=== PATIENT | female | born 2000 | race African-American/Black ===

== ENCOUNTER 2023-08-13 04:47 | Observation (INO) | payer MEDICARE, OTHER ==
--- NOTE | 2023-08-13 05:03 | ED ---
Seizure HPI - General Source: EMS Mode of arrival: EMS Limitations: altered mental status - History of Present Illness MD Complaint: seizure -: minutes(s) Description of Episode: loss of consciousness, tonic-clonic movement -: second(s) Witnessed: yes - by bystander Seizure History: known seizure disorder Place: other <Qamar Parikh - Last Filed: 08/13/23 07:10> <Rayray Frank - Last Filed: 08/13/23 08:19> - General Stated Complaint: Seizure Time Seen by Provider: 08/13/23 04:51 - History of Present Illness Initial Comments: Patient is a young woman brought by EMS to have evaluation for seizure. The patient reportedly had a seizure tonight while at a local motel. EMS was called to the [facility] for patient who had generalized tonic-clonic seizure. Patient reportedly has seizure history. She reportedly had been drinking with and then had seizure EMS was called and patient reportedly had a second. On arrival the patient is not able to provide any history does appear to be postictal. (Qamar Parikh) - Related Data Allergies Allergy/AdvReac Type Severity Reaction Status Date / Time No Known Allergies Allergy Verified 08/13/23 05:44 Review of Systems ROS Other: All systems not noted in ROS Statement are negative. Limitations: ROS unobtainable due to patients medical condition <Qamar Parikh - Last Filed: 08/13/23 07:10> ROS Other: All systems not noted in ROS Statement are negative. <Rayray Frank - Last Filed: 08/13/23 08:19> ROS Statement: Those systems with pertinent positive or pertinent negative responses have been documented in the HPI. General Exam Limitations: altered mental status General appearance: obtunded Head exam: Present: atraumatic, normocephalic Eye exam: Present: normal appearance, PERRL. Absent: scleral icterus, conjunctival injection ENT exam: Present: normal oropharynx Neck exam: Present: normal inspection, full ROM. Absent: tenderness Respiratory exam: Present: normal lung sounds bilaterally. Absent: respiratory distress, wheezes, rales, rhonchi, stridor Cardiovascular Exam: Present: regular rate, normal rhythm, normal heart sounds. Absent: systolic murmur, diastolic murmur, rubs, gallop GI/Abdominal exam: Present: soft. Absent: distended, tenderness, guarding, rebound, rigid, mass Extremities exam: Present: normal inspection, normal capillary refill. Absent: pedal edema, calf tenderness Back exam: Present: normal inspection. Absent: CVA tenderness (R), CVA tenderness (L) Neurological exam: Present: altered, reflexes normal Skin exam: Present: warm, dry, intact, normal color. Absent: rash <Qamar Parikh - Last Filed: 08/13/23 07:10> Course Vital Signs 08/13/23 08/13/23 05:25 06:17 Temperature 98.3 F Pulse Rate 110 H 101 H Respiratory 16 16 Rate Blood Pressure 139/86 159/110 O2 Sat by Pulse 99 98 Oximetry Medical Decision Making - Lab Data Result diagrams: 08/13/23 04:59 08/13/23 04:59 - EKG Data -: EKG Interpreted by Me EKG shows normal: sinus rhythm, axis (Normal), intervals (Normal), QRS complexes (Normal), ST-T waves (Normal) Rate: tachycardia (Rate 110 bpm) <Qamar Parikh - Last Filed: 08/13/23 07:10> - Lab Data Result diagrams: 08/13/23 04:59 08/13/23 04:59 <Rayray Frank - Last Filed: 08/13/23 08:19> - Medical Decision Making Discussion with the patient's reveal that they had started drinking around 1 PM on August 12. The patient had also taken something that she had bought at the liquor store, that was supposed to enhance female libido. They had eaten pizza and then gone to sleep and then the patient had awakened him with seizure. (Qamar Parikh) Was pt. sent in by a medical professional or institution (, PA, CONTINUITY PERSON, urgent care, hospital, or usp...) When possible be specific @ -No Did you speak to anyone other than the patient for history (EMS, parent, family, police, friend...)? What history was obtained from this source @ - helps provide history as patient is drowsy Did you review nursing and triage notes (agree or disagree)? Why? @ -I reviewed and agree with nursing and triage notes Were old charts reviewed (outside hosp., previous admission, EMS record, old EKG, old radiological studies, urgent care reports/EKG's, usp records)? Report findings @ -No old charts were reviewed Differential Diagnosis (chest pain, altered mental status, abdominal pain women, abdominal pain men, vaginal bleeding, weakness, fever, dyspnea, syncope, headache, dizziness, GI bleed, back pain, seizure, CVA, palpatations, mental health, musculoskeletal)? @ -Differential Seizure: Recurrent seizure disorder, febrile seizure, alcohol withdrawal, stimulants, meningitis, encephalitis, intercranial hemorrhage, intracranial tumor, stroke, eclampsia, thyrotoxicosis, hypocalcemia, hyponatremia, hypernatremia, hypomagnesemia, psychogenic, this is not meant to be an all-inclusive list. EKG interpreted by me (3pts min.). @ -As above X-rays interpreted by me (1pt min.). @ -Chest x-ray shows no acute process CT interpreted by me (1pt min.). @ -CT brain reveals no acute process. U/S interpreted by me (1pt. min.). @ -None done What testing was considered but not performed or refused? (CT, X-rays, U/S, labs)? Why? @ -None What meds were considered but not given or refused? Why? @ -None Did you discuss the management of the patient with other professionals (professionals i.e. , PA, CONTINUITY PERSON, lab, RT, psych nurse, social science instructor, senior net engineer, teacher, police officer booking, briefcase sewer)? Give summary @ -EMH, who will admit covering hospital call Was smoking cessation discussed for >3mins.? @ -No Was critical care preformed (if so, how long)? @ -No Were there social determinants of health that impacted care today? How? (Homelessness, low income, unemployed, alcoholism, drug addiction, transportation, low edu. Level, literacy, decrease access to med. care, prison, rehab)? @ -No Was there de-escalation of care discussed even if they declined (Discuss DNR or withdrawal of care, Hospice)? DNR status @ -No What co-morbidities impacted this encounter? (DM, HTN, Smoking, COPD, CAD, Cancer, CVA, ARF, Chemo, Hep., AIDS, mental health diagnosis, sleep apnea, morbid obesity)? @ -None Was patient admitted / discharged? Hospital course, mention meds given and route, prescriptions, significant lab abnormalities, going to OR and other pertinent info. @ -Patient presents with seizure and has had a couple partial seizures in the emergency department. Patient remains drowsy on reevaluation. Evaluation limited at this time. Patient complains of back pain. Lumbar CT with some disc herniations. Patient will be admitted secondary to recurrent seizures with neuro and Ortho evaluation. Undiagnosed new problem with uncertain prognosis? @ -No Drug Therapy requiring intensive monitoring for toxicity (Heparin, Nitro, Insulin, Cardizem)? @ -No Were any procedures done? @ -No Diagnosis/symptom? @ -Recurrent seizures, lumbar herniation Acute, or Chronic, or Acute on Chronic? @ -Acute, acute Uncomplicated (without systemic symptoms) or Complicated (systemic symptoms)? @ -Default Side effects of treatment? @ -No Exacerbation, Progression, or Severe Exacerbation? @ -No Poses a threat to life or bodily function? How? (Chest pain, USA, CT, pneumonia, PE, COPD, DKA, ARF, appy, cholecystitis, CVA, Diverticulitis, Homicidal, Suicidal, threat to staff... and all critical care pts) @ -No (Rayray Frank) - Lab Data Lab Results 08/13/23 08/13/23 08/13/23 Range/Units 04:59 04:59 04:59 WBC 6.9 (3.8-10.6) k/uL RBC 4.24 (3.80-5.40) m/uL Hgb 11.9 (11.4-16.0) gm/dL Hct 36.8 (34.0-46.0) % MCV 86.8 (80.0-100.0) fL MCH 28.2 (25.0-35.0) pg MCHC 32.5 (31.0-37.0) g/dL RDW 13.9 (11.5-15.5) % Plt Count 358 (150-450) k/uL MPV 7.0 Neutrophils % 71 % Lymphocytes % 23 % Monocytes % 2 % Eosinophils % 2 % Basophils % 1 % Neutrophils # 4.9 (1.3-7.7) k/uL Lymphocytes # 1.6 (1.0-4.8) k/uL Monocytes # 0.2 (0-1.0) k/uL Eosinophils # 0.1 (0-0.7) k/uL Basophils # 0.0 (0-0.2) k/uL PT 10.3 (10.0-12.5) sec INR 0.9 (<1.2) APTT 23.3 (22.0-30.0) sec Sodium (137-145) mmol/L Potassium (3.5-5.1) mmol/L Chloride (98-107) mmol/L Carbon Dioxide (22-30) mmol/L Anion Gap mmol/L BUN (7-17) mg/dL Creatinine (0.52-1.04) mg/dL Est GFR (CKD-EPI)AfAm (>60 ml/min/1.73 sqM) Est GFR (CKD-EPI)NonAf (>60 ml/min/1.73 sqM) Glucose (74-99) mg/dL Calcium (8.4-10.2) mg/dL Total Bilirubin (0.2-1.3) mg/dL AST (14-36) U/L ALT (4-34) U/L Alkaline Phosphatase (38-126) U/L Troponin I (0.000-0.034) ng/mL Total Protein (6.3-8.2) g/dL Albumin (3.5-5.0) g/dL Urine Color Urine Appearance (Clear) Urine pH (5.0-8.0) Ur Specific [place] (1.001-1.035) Urine Protein (Negative) Urine Glucose (UA) (Negative) Urine Ketones (Negative) Urine Blood (Negative) Urine Nitrite (Negative) Urine Bilirubin (Negative) Urine Urobilinogen (<2.0) mg/dL Ur Leukocyte Esterase (Negative) Urine HCG, Qual (Not Detectd) Urine Opiates Screen Not Detected (NotDetected) Ur Oxycodone Screen Not Detected (NotDetected) Urine Methadone Screen Not Detected (NotDetected) Ur Barbiturates Screen Not Detected (NotDetected) U Tricyclic Antidepress Not Detected (NotDetected) Ur Phencyclidine Scrn Not Detected (NotDetected) Ur Amphetamines Screen Not Detected (NotDetected) U Methamphetamines Scrn Not Detected (NotDetected) U Benzodiazepines Scrn Not Detected (NotDetected) Urine Cocaine Screen Not Detected (NotDetected) U Marijuana (THC) Screen Detected H (NotDetected) Serum Alcohol mg/dL 08/13/23 08/13/23 08/13/23 Range/Units 04:59 04:59 04:59 WBC (3.8-10.6) k/uL RBC (3.80-5.40) m/uL Hgb (11.4-16.0) gm/dL Hct (34.0-46.0) % MCV (80.0-100.0) fL MCH (25.0-35.0) pg MCHC (31.0-37.0) g/dL RDW (11.5-15.5) % Plt Count (150-450) k/uL MPV Neutrophils % % Lymphocytes % % Monocytes % % Eosinophils % % Basophils % % Neutrophils # (1.3-7.7) k/uL Lymphocytes # (1.0-4.8) k/uL Monocytes # (0-1.0) k/uL Eosinophils # (0-0.7) k/uL Basophils # (0-0.2) k/uL PT (10.0-12.5) sec INR (<1.2) APTT (22.0-30.0) sec Sodium 146 H (137-145) mmol/L Potassium 4.1 (3.5-5.1) mmol/L Chloride 111 H (98-107) mmol/L Carbon Dioxide 24 (22-30) mmol/L Anion Gap 11 mmol/L BUN 9 (7-17) mg/dL Creatinine 0.67 (0.52-1.04) mg/dL Est GFR (CKD-EPI)AfAm >90 (>60 ml/min/1.73 sqM) Est GFR (CKD-EPI)NonAf >90 (>60 ml/min/1.73 sqM) Glucose 108 H (74-99) mg/dL Calcium 9.6 (8.4-10.2) mg/dL Total Bilirubin 0.4 (0.2-1.3) mg/dL AST 23 (14-36) U/L ALT 14 (4-34) U/L Alkaline Phosphatase 89 (38-126) U/L Troponin I 0.026 (0.000-0.034) ng/mL Total Protein 8.7 H (6.3-8.2) g/dL Albumin 4.7 (3.5-5.0) g/dL Urine Color Light Yellow Urine Appearance Clear (Clear) Urine pH 7.5 (5.0-8.0) Ur Specific [place] 1.013 (1.001-1.035) Urine Protein Negative (Negative) Urine Glucose (UA) Negative (Negative) Urine Ketones Negative (Negative) Urine Blood Negative (Negative) Urine Nitrite Negative (Negative) Urine Bilirubin Negative (Negative) Urine Urobilinogen <2.0 (<2.0) mg/dL Ur Leukocyte Esterase Negative (Negative) Urine HCG, Qual (Not Detectd) Urine Opiates Screen (NotDetected) Ur Oxycodone Screen (NotDetected) Urine Methadone Screen (NotDetected) Ur Barbiturates Screen (NotDetected) U Tricyclic Antidepress (NotDetected) Ur Phencyclidine Scrn (NotDetected) Ur Amphetamines Screen (NotDetected) U Methamphetamines Scrn (NotDetected) U Benzodiazepines Scrn (NotDetected) Urine Cocaine Screen (NotDetected) U Marijuana (THC) Screen (NotDetected) Serum Alcohol 14 mg/dL 08/13/23 Range/Units 04:59 WBC (3.8-10.6) k/uL RBC (3.80-5.40) m/uL Hgb (11.4-16.0) gm/dL Hct (34.0-46.0) % MCV (80.0-100.0) fL MCH (25.0-35.0) pg MCHC (31.0-37.0) g/dL RDW (11.5-15.5) % Plt Count (150-450) k/uL MPV Neutrophils % % Lymphocytes % % Monocytes % % Eosinophils % % Basophils % % Neutrophils # (1.3-7.7) k/uL Lymphocytes # (1.0-4.8) k/uL Monocytes # (0-1.0) k/uL Eosinophils # (0-0.7) k/uL Basophils # (0-0.2) k/uL PT (10.0-12.5) sec INR (<1.2) APTT (22.0-30.0) sec Sodium (137-145) mmol/L Potassium (3.5-5.1) mmol/L Chloride (98-107) mmol/L Carbon Dioxide (22-30) mmol/L Anion Gap mmol/L BUN (7-17) mg/dL Creatinine (0.52-1.04) mg/dL Est GFR (CKD-EPI)AfAm (>60 ml/min/1.73 sqM) Est GFR (CKD-EPI)NonAf (>60 ml/min/1.73 sqM) Glucose (74-99) mg/dL Calcium (8.4-10.2) mg/dL Total Bilirubin (0.2-1.3) mg/dL AST (14-36) U/L ALT (4-34) U/L Alkaline Phosphatase (38-126) U/L Troponin I (0.000-0.034) ng/mL Total Protein (6.3-8.2) g/dL Albumin (3.5-5.0) g/dL Urine Color Urine Appearance (Clear) Urine pH (5.0-8.0) Ur Specific [place] (1.001-1.035) Urine Protein (Negative) Urine Glucose (UA) (Negative) Urine Ketones (Negative) Urine Blood (Negative) Urine Nitrite (Negative) Urine Bilirubin (Negative) Urine Urobilinogen (<2.0) mg/dL Ur Leukocyte Esterase (Negative) Urine HCG, Qual Not Detected (Not Detectd) Urine Opiates Screen (NotDetected) Ur Oxycodone Screen (NotDetected) Urine Methadone Screen (NotDetected) Ur Barbiturates Screen (NotDetected) U Tricyclic Antidepress (NotDetected) Ur Phencyclidine Scrn (NotDetected) Ur Amphetamines Screen (NotDetected) U Methamphetamines Scrn (NotDetected) U Benzodiazepines Scrn (NotDetected) Urine Cocaine Screen (NotDetected) U Marijuana (THC) Screen (NotDetected) Serum Alcohol mg/dL Disposition <Qamar Parikh - Last Filed: 08/13/23 07:10> Is patient prescribed a controlled substance at d/c from ED?: No Time of Disposition: 08:19 <Rayray Frank - Last Filed: 08/13/23 08:19> Clinical Impression: Generalized seizure, Lumbar disc herniation Disposition: ADMITTED IP TO THIS [facility] Instructions (If sedation given, give patient instructions): Seizure/Epilepsy Discharge Instructions & Follow-Up Referrals: None,Stated [Primary Care Provider] - 1-2 days
[2023-08-13 05:31] LABS: Basophils % (A) 1 %; Eosinophils # (A) 0.1 k/uL (0-0.7); Eosinophils % (A) 2 %; HCT 36.8 % (34.0-46.0); HGB 11.9 gm/dL (11.4-16.0); Lymphocytes # (A) 1.6 k/uL (1.0-4.8); Lymphocytes % (A) 23 %; MCH 28.2 pg (25.0-35.0); MCHC 32.5 g/dL (31.0-37.0); MCV 86.8 fL (80.0-100.0); Monocytes # (A) 0.2 k/uL (0-1.0); Monocytes % (A) 2 %; Neutrophils # (A) 4.9 k/uL (1.3-7.7); Neutrophils % (A) 71 %; Platelet Count 358 k/uL (150-450); RBC 4.24 m/uL (3.80-5.40); RDW 13.9 % (11.5-15.5); WBC 6.9 k/uL (3.8-10.6)
[2023-08-13 05:33] VITALS: TEMP 98.3
[2023-08-13 05:39] LABS: Appearance,Urine Clear (Clear); Bilirubin,Urine Negative (Negative); Blood,Urine Negative (Negative); Color,Urine Light Yellow; Glucose,Urine (UA) Negative (Negative); Ketones,Urine Negative (Negative); Leukocyte Esterase,Urine Negative (Negative); Nitrite,Urine Negative (Negative); PH, Urine 7.5 (5.0-8.0); Protein,Urine Negative (Negative); Specific Gravity,Urine 1.013 (1.001-1.035); Urobilinogen,Urine <2.0 mg/dL (<2.0)
[2023-08-13] MEDS: SODIUM CHLORIDE 0.9% 1,000 ML IV ONE (05:44)
[2023-08-13 05:50] LABS: INR 0.9 (<1.2); Partial Thromboplastin Time 23.3 sec (22.0-30.0); Prothrombin Time 10.3 sec (10.0-12.5)
[2023-08-13 05:51] LABS: ALT 14 U/L (4-34); AST 23 U/L (14-36); African American GFR (CKD) >90 (>60 ml/min/1.73 sqM); Albumin 4.7 g/dL (3.5-5.0); Alcohol 14 mg/dL; Alkaline Phosphatase 89 U/L (38-126); Anion Gap 11 mmol/L; Blood Urea Nitrogen 9 mg/dL (7-17); Calcium 9.6 mg/dL (8.4-10.2); Carbon Dioxide 24 mmol/L (22-30); Chloride 111 mmol/L (98-107); Glucose 108 mg/dL (74-99); Non-African American GFR(CKD) >90 (>60 ml/min/1.73 sqM); Potassium 4.1 mmol/L (3.5-5.1); Sodium 146 mmol/L (137-145); Total Bilirubin 0.4 mg/dL (0.2-1.3); Total Protein 8.7 g/dL (6.3-8.2)
[2023-08-13 05:56] LABS: Amphetamine Screen,Urine Not Detected (NotDetected); Barbiturate Screen,Urine Not Detected (NotDetected); Benzodiazepines Screen,Urine Not Detected (NotDetected); Cocaine Screen,Urine Not Detected (NotDetected); Methadone Screen, Urine Not Detected (NotDetected); Opiate Screen,Urine Not Detected (NotDetected); Oxycodone Screen, Urine Not Detected (NotDetected); Phencyclidine Screen,Urine Not Detected (NotDetected); Tricyclic Antidepressant,Urine Not Detected (NotDetected); Urn Cannabinoid Scrn Detected (NotDetected)
[2023-08-13] MEDS: LORazepam 2 MG/ML INJ IM STA (06:11)
[2023-08-13] MEDS: levETIRAcetam IV 2,000 MG in SODIUM CHLORIDE 0.9% 250 ML IVPB ONE (06:41)
[2023-08-13] MEDS: ONDANSETRON 4 MG/2 ML VIAL IVP STA (06:56)
[2023-08-13] MEDS: MORPHINE SULFATE 4 MG/ML SYRINGE IV STA (06:57)
--- NOTE | 2023-08-13 07:31 | CT ---
EXAMINATION TYPE: CT brain wo con DATE OF EXAM: 08/13/2023 COMPARISON: None HISTORY: 23-year-old female Fall, seizure TECHNIQUE: Examination was done in axial plane without intravenous contrast. Coronal and sagittal r econstructions performed. CT DLP: 1046.4 mGycm Automated exposure control for dose reduction was used. FINDINGS: There is no evidence of acute intracranial hemorrhage, acute ischemic changes, mass, mass-effect, or extra-axial fluid collection. There is no effacement of cerebral sulci or basal subarachnoid cister ns. There is no hydrocephalus. There is no midline shift. Ring-white matter distinction is preserv ed. There is anatomic variation with persistent CSP. Trace mucosal thickening right maxillary sinus. Remainder of the paranasal sinuses and mastoid air ce lls well pneumatized. Slight leftward nasal septal deviation. Orbits and globes are intact. IMPRESSION: No acute intracranial abnormality seen.
--- NOTE | 2023-08-13 07:36 | CT ---
EXAMINATION TYPE: CT lumbar spine wo con DATE OF EXAM: 08/13/2023 COMPARISON: None HISTORY: 23-year-old female with pain after Fall, seizure TECHNIQUE: Contiguous axial scanning of the lumbar spine without IV contrast. Coronal and sagittal re constructions performed. CT DLP: 679.7 mGycm Automated exposure control for dose reduction was used. FINDINGS: Noted is artifact related to the patient's arms down by her side. Vertebral body heights are preserved and alignment is maintained. Disc interspaces are also maintained though there are bulging discs in the mid and lower lumbar spine . There may be a superimposed left paracentral protrusion at L4-L5, axial image 62 that could encroac h on the traversing left L5 nerve root. Some ligamentum flavum thickening is also present here at thi s level causing mild circumferential attenuation of the thecal sac. Disc bulge at L5-S1 may also abut the traversing left S1 nerve root. Changes result in mild neuroforaminal narrowing on both sides at L4-L5 and L5-S1. IMPRESSION: 1. NO VERTEBRAL COMPRESSION COLLAPSE OR MALALIGNMENT. 2. BULGING DISCS IN THE MID TO LOWER LUMBAR SPINE. THERE MAY BE A SMALL SUPERIMPOSED LEFT PARACENTRAL HERNIATION AT L4-L5 THAT COULD ABUT THE TRAVERSING LEFT L5 NERVE ROOT. MILD CIRCUMFERENTIAL NARROWIN G OF THE SPINAL CANAL AT THIS LEVEL. 3. DISC BULGE AT L5-S1 MAY ABUT THE TRAVERSING LEFT S1 NERVE ROOT. 4. MILD BILATERAL NEURAL FORAMINAL NARROWING AT L4-L5 AND L5-S1.
--- NOTE | 2023-08-13 07:54 | XR ---
EXAMINATION TYPE: XR chest 1V portable DATE OF EXAM: 08/13/2023 Comparison: None Clinical History: 23-year-old female confusion, seizure activity, altered mental status Findings: The cardiomediastinal silhouette, aorta, and pulmonary vasculature are within normal limits. Lungs and pleural spaces are clear. Impression: No acute cardiopulmonary process.
[2023-08-13] MEDS ORDERED: NALOXONE 0.4 MG/ML 1 ML VIAL IV PRN (08:19)
[2023-08-13] MEDS ORDERED: ACETAMINOPHEN TAB 325 MG TAB PO PRN (08:19)
[2023-08-13] MEDS ORDERED: LORazepam 2 MG/ML INJ IV PRN (08:21)
[2023-08-13] MEDS: levETIRAcetam IV 500 MG/5 ML VIAL IVP SCH (08:30)
[2023-08-13] MEDS ORDERED: MELATONIN 3 MG TABLET PO PRN (08:32)
[2023-08-13] MEDS ORDERED: LORazepam 0.5 MG TAB PO PRN (08:54)
[2023-08-13] MEDS ORDERED: LORazepam 1 MG TAB PO PRN ×2 (08:54)
[2023-08-13] MEDS: SODIUM CHLORIDE 0.9% 1,000 ML IV SCH ×2 (09:04)
[2023-08-13] MEDS: LIDOCAINE 4% PATCH TOPICAL SCH (09:04)
[2023-08-13 09:06] VITALS: RESP 18
[2023-08-13] MEDS: MORPHINE SULFATE 4 MG/ML SYRINGE IV PRN ×2 (10:41→15:59)
[2023-08-13] MEDS: traMADol 50 MG TAB PO PRN (11:55)
[2023-08-13 12:46] VITALS: PULSE 100
[2023-08-13] MEDS: ONDANSETRON 4 MG/2 ML VIAL IVP PRN (12:46)
[2023-08-13] MEDS ORDERED: CYCLOBENZAPRINE 10 MG TAB PO PRN (12:48)
--- NOTE | 2023-08-13 12:50 | P.HPIM ---
History of Present Illness H&P Date: 08/13/23 Chief Complaint: Seizures * 23-year-old patient with past medical history significant for seizure disorder presents to the emergency department with episode of tonic-clonic seizure. Patient was accompanied by her . They were at a local motel the patient and were having her drink. Apparently they went to sleep and when she woke up patient had an episode of tonic-clonic seizure. Patient reportedly had a second episode of seizure and upon arrival in the emergency patient was noted to be postictal * Workup initiated in ER included a CT brain which was negative for acute process * Patient had a fall per documentation prior to admission hence CT lumbar spine was obtained which did show disc bulging and small paracentral herniation at L4-L5 was noted, disc bulging L5-S1 was noted as well * While in the ER patient was given 1 dose of Keppra loading dose, Ativan and fluid bolus * Workup in ER included basic metabolic panel which showed sodium of 146 potass ium 4.1 chloride 111 BUN and creatinine within normal limits blood glucose of 108 * CBC obtained showed WBC 6.9 hemoglobin 11.9 platelet count of 358 INR of 0.9 * Urine analysis essentially negative urine drug screen positive for marijuana serum alcohol level 14 REVIEW OF SYSTEMS: Seizure, back pain CONSTITUTIONAL: No fever, no malaise, no fatigue. HEENT: No recent visual problems or hearing problems. Denied any sore throat. CARDIOVASCULAR: No chest pain, orthopnea, PND, no palpitations, no syncope. PULMONARY: No shortness of breath, no cough, no hemoptysis. GASTROINTESTINAL: No diarrhea, no nausea, no vomiting, no abdominal pain. NEUROLOGICAL: No headaches, no weakness, no numbness. HEMATOLOGICAL: Denies any bleeding or petechiae. GENITOURINARY: Denies any burning micturition, frequency, or urgency. MUSCULOSKELETAL/RHEUMATOLOGICAL:Seizure, back pain ENDOCRINE: Denies any polyuria or polydipsia. PHYSICAL EXAMINATION: GENERAL: The patient is alert and oriented x3, ill appearance, in distress HEENT: Pupils are round and equally reacting to light. EOMI. CARDIOVASCULAR: S1 and S2 present. No murmurs, rubs, or gallops. PULMONARY: Chest is clear to auscultation, no wheezing or crackles. ABDOMEN: Soft, nontender, nondistended, normoactive bowel sounds. MUSCULOSKELETAL: No joint swelling or deformity. EXTREMITIES: No cyanosis, clubbing, or pedal edema. NEUROLOGICAL: Gross neurological examination did not reveal any focal deficits. SKIN: No rashes. Past Medical History Smoking Status: Unknown if ever smoked Past Alcohol Use History: Unable to Obtain Past Drug Use History: Unable to Obtain Medications and Allergies Home Medications Medication Instructions Recorded Confirmed Type Cyclobenzaprine [Flexeril] 10 mg PO TID PRN 08/13/23 08/13/23 History NIFEdipine XL [Procardia Xl] 30 mg PO DAILY 08/13/23 08/13/23 History Prochlorperazine [Compazine] 10 mg PO TID 08/13/23 08/13/23 History QUEtiapine [SEROquel] 200 mg PO HS 08/13/23 08/13/23 History clindamycin HCL 300 mg PO BID-W/MEALS 08/13/23 08/13/23 History lamoTRIgine [LaMICtal] 25 mg PO BID 08/13/23 08/13/23 History medroxyPROGESTERone [Depo-Provera] 150 mg IM Q84D 08/13/23 08/13/23 History Allergies Allergy/AdvReac Type Severity Reaction Status Date / Time No Known Allergies Allergy Verified 08/13/23 09:18 Physical Exam Vitals: Vital Signs Temp Pulse Resp BP Pulse Ox 08/13/23 08:19 101 H 18 151/107 96 08/13/23 07:00 104 H 20 96 08/13/23 06:17 101 H 16 159/110 98 08/13/23 05:25 98.3 F 110 H 16 139/86 99 Intake and Output 08/12/23 08/13/23 08/13/23 22:59 06:59 14:59 Other: Weight 58.967 kg Results CBC & Chem 7: 08/13/23 04:59 08/13/23 04:59 Labs: Abnormal Lab Results - Last 24 Hours (Table) 08/13/23 08/13/23 Range/Units 04:59 04:59 Sodium 146 H (137-145) mmol/L Chloride 111 H (98-107) mmol/L Glucose 108 H (74-99) mg/dL Total Protein 8.7 H (6.3-8.2) g/dL U Marijuana (THC) Screen Detected H (NotDetected) Assessment and Plan Assessment: Assessment and plan * History of seizure disorder with tonic-clonic seizure * Alcohol use * Acute hypernatremia * Lumbar spine disc herniation mild, with acute back pain * In regards to seizure, CT head obtained negative, neurology consulted as needed Ativan, continue patient on IV Keppra, Lamictal level sent, Lamictal resumed * In regards to alcohol use, continue patient on withdrawal protocol, Ativan as needed continue thiamine * In regards to acute hypernatremia, follow-up on basic metabolic panel, continue IV hydration * In regards to lumbar disc herniation as needed lidocaine patch ordered, orthospine consulted * CODE STATUS is full code Time with Patient: Greater than 30
[2023-08-13] MEDS: PROCHLORPERAZINE INJ 10 MG/2 ML VIAL IVP PRN (13:14)
--- NOTE | 2023-08-13 13:25 | P.CNNES ---
History of Present Illness Consult date: 08/13/23 Requesting physician: Rayray Frank Reason for Consult: seizure History of Present Illness: This is a 23-year-old woman who presents to the emergency department because of seizure activity. History is obtained from medical records. Patient was drowsy and sleepy upon seeing her and she could not provide much of the history. It seems that the patient presented that because of episode of tonic-clonic seizure. Her notified the ED team and is seems primary team that they were at a motel and they're having the a drink in the one to sleep and then when she woke up she had an episode of tonic-clonic seizure-like activity. Seems that she had a second episode and upon arrival to emergency she was a post ictal. According to patient she does have underlying history of seizures and she is on medication but she could not tell me. She is also having pain she stated that she hasn't having lower back pain as well as abdominal pain. She cannot tell me again the name of the medication the for her seizures and the she feels she is compliant taking the medication. In the ED the patient was given Ativan 2 mg once as well as was given Keppra 2 g once as well as morphine 4 milligrams. Some other workup during his hospital visit consisted of: Patient is afebrile. CBC with differential is unremarkable Sodium is 146, glucose is 108, calcium 9.6, AST ALT and BUN/creatinine are within normal limits Urinalysis seems negative for underlying urinary tract infection. Urine hCG is not detected Urine drug screen is positive for marijuana the serum alcohol was 14. CT head is reported as no acute intracranial abnormality seen. I personally reviewed the CT and agree with the report. CT lumbar is reported as no vertebral compression collapse or malalignment. Bulging disc in the mid to lower lumbar spine. There may be a small superimposed left paracentral herniation at L4-L5 the kids that A but that transversing left L5 nerve root. Mild circumferential narrowing of the spinal canal at this level. Disc bulging at L5-S1 and may be abut that transversing left S1 nerve root. Mild bilateral neuroforaminal narrowing at L4-L5 and L5-S1. Review of Systems Limited but the positive and negative as per HPI. Past Medical History Smoking Status: Unknown if ever smoked Past Alcohol Use History: Unable to Obtain Past Drug Use History: Unable to Obtain Medications and Allergies Home Medications Medication Instructions Recorded Confirmed Type Cyclobenzaprine [Flexeril] 10 mg PO TID PRN 08/13/23 08/13/23 History NIFEdipine XL [Procardia Xl] 30 mg PO DAILY 08/13/23 08/13/23 History Prochlorperazine [Compazine] 10 mg PO TID 08/13/23 08/13/23 History QUEtiapine [SEROquel] 200 mg PO HS 08/13/23 08/13/23 History clindamycin HCL 300 mg PO BID-W/MEALS 08/13/23 08/13/23 History lamoTRIgine [LaMICtal] 25 mg PO BID 08/13/23 08/13/23 History medroxyPROGESTERone [Depo-Provera] 150 mg IM Q84D 08/13/23 08/13/23 History Allergies Allergy/AdvReac Type Severity Reaction Status Date / Time No Known Allergies Allergy Verified 08/13/23 09:18 Physical Examination - Vital Signs Vital Signs: Vital Signs Temp Pulse Resp BP Pulse Ox 08/13/23 12:36 100 18 165/100 97 08/13/23 10:35 106 H 18 164/98 97 08/13/23 08:19 101 H 18 151/107 96 08/13/23 07:00 104 H 20 96 08/13/23 06:17 101 H 16 159/110 98 08/13/23 05:25 98.3 F 110 H 16 139/86 99 Intake and Output 08/12/23 08/13/23 08/13/23 22:59 06:59 14:59 Other: Weight 58.967 kg General: Lying in bed and does not appear in acute distress. Neuro: Very limited since very drowsy. Patient is briefly arousable to voice. She is oriented to self. She is following very few simple commands such as showing thumbs up wiggling her toes smiling. Pupils are 4 mm bilaterally and reactive to light. No facial weakness. She is able to stick out her tongue and with the limitation I did not appreciate any tongue bite. Motor the strength is limited and she briefly lifted bilateral upper extremity above gravity and wiggled her toes symmetrically Reflexes 2 positive throughout. Plantars are downgoing bilaterally. Results - Laboratory Findings CBC and BMP: 08/13/23 04:59 08/13/23 04:59 Abnormal Lab Findings: Abnormal Labs 08/13/23 08/13/23 04:59 04:59 Sodium 146 H Chloride 111 H Glucose 108 H Total Protein 8.7 H U Marijuana (THC) Screen Detected H Assessment and Plan Assessment: This is a 23-year-old woman with history of seizures who presented emergency department because of the reported two tonoclonic seizure-like activity. Seems she was at a motel drinking. She is also complaining of lower back pain. Breakthrough seizure possibly provoked due to alcohol use as well as being on a very low dose of antiepileptic seems that she is on Lamictal 25 mg twice a day per medical record Encephalopathy due to a ball as well as patient received Ativan and morphine Lower back pain and on CT reported left paracentral herniation at L4-L5 the transversing left L5 nerve root. History of seizures Marijuana use Alcohol use Plan: I ordered a routine EEG. She's resumed on her home medication of Lamictal 25 mg twice a day. The patient received a loading dose of Keppra 2 g by ED then was started on Keppra 500 mg twice a day. Pulmonary perspective I recommend to slowly titrate the Lamictal up for goal total 100 mg twice a day then afterwards can slowly wean down the Keppra once seizures are controlled and I can be correlated as an outpatient. Recommend going up on Lamictal 25 mg each week because of concern of rash. Patient is on Ativan when necessary 1 mg every 4 hours for seizure. seizure precaution and pad She is also on Ativan for CIWA protocol Continue thiamine 100mg daily Dr. Ortiz is consulted for lower back pain. Will defer the rest of the medical measure the primary and other specialists Thank you for the consultation Time with Patient: Greater than 30
--- NOTE | 2023-08-13 13:34 | XR ---
EXAMINATION TYPE: XR KUB portable DATE OF EXAM: 08/13/2023 CLINICAL DATA: 23-year-old female ileus, [facility] COMPARISON: None FINDINGS: Lung bases are clear. No evidence for free intraperitoneal air. No dilated small bowel or air-fluid levels. Scattered air and stool seen throughout the colon extendi ng distally into the rectum. Mild overall stone burden. No suspicious calcifications identified. IMPRESSION: 1. Mild overall stool burden. 2. No evidence of bowel obstruction or free intraperitoneal air.
[2023-08-13] MEDS: QUEtiapine 200 MG TAB PO SCH (13:40)
[2023-08-13] MEDS: NIFEdipine XL 30 MG TAB.ER.24 PO SCH (13:40)
--- NOTE | 2023-08-13 13:56 | P.PN ---
Progress Note - Text Progress Note Date: 08/12/23 Orthopedic spine: History of present illness: Patient is a pleasant 69-year-old female who is seen and examined at bedside for follow-up evaluation of her lumbar spine. Since being seen and examined she states she has not had any significant improvement of her symptoms and feels her symptoms have worsened overall. She does admit to having difficulty with her bilateral lower extremities with weakness and low back pain over the past couple years but feels her symptoms have significantly worsened recently. She states she did sustain a fall last 08/05/2023, but was able to ambulate did not have any difficulties after that. She states on Friday she began to have difficulty with ambulation and feeling that her legs would give out on her. She started to ambulate with assistance of a cane. Her symptoms progressed and she had to transition to a walker. She is having difficulty with ambulating and has difficulty standing on her left lower extremity. She presented to the hospital for further evaluation. She also has numbness and tingling over the anterior thighs and states it now radiates down both of her lower extremities. She feels some numbness within her pelvis. She has been experiencing urinary retention and has a Am catheter intact. Today she states since her admission in the hospital she is also experiencing thoracic pain near the bra line. We did discuss that her lumbar MRI imaging shows bony changes that appear to represent metastatic disease. Patient is not known to have a previous cancer diagnosis. We did discuss we will plan to obtain further imaging and further consultation with other medical providers based on the results of the MRI. Patient has been seen and examined by medicine for multiple other medical diagnoses including diabetes mellitus, hyperlipidemia, hypertension, and current everyday smoker. She does states she has sustained multiple falls over the past month. She currently denies any injuries at the time of the falls. Physical exam: Patient is awake, alert, and oriented 3 Vital signs stable Good chest excursion with deep inspiration and expiration Examination of thoracic and lumbar spine reveals skin is intact with no abrasions, lacerations, or bruises; no erythema, purulence or signs of infection Some pain with palpation along the midline of the mid thoracic spine Dorsiflexion, plantarflexion, and extensor hallucis longus positive sustained bilaterally Weakness bilaterally with hip flexion and knee extension with weakness most significant on the left No signs or symptoms of DVT; no calf pain No pain with internal and external rotation of the hips bilaterally Neurovascularly intact Ma catheter intact Pertinent studies: MRI of the lumbar spine taken on 08/12/2023: Scattered metastatic disease seen throughout the lumbar spine; sacrum metastatic disease with anterior and posterior soft tissue component; L2 vertebral body superior endplate deformity with underlying mass with bony edema; T12 vertebral body metastatic mass with extension to the thecal sac with moderate spinal canal stenosis and moderate right neuroforaminal stenosis; L1-2 soft tissue mass extends into the left foramen with mild left foraminal stenosis; L2-3 disc bulge and facet arthropathy with moderate spinal canal stenosis and mild bilateral neural foraminal stenosis; L3-4 disc bulge and facet joint arthropathic resulting in severe spinal canal stenosis and moderate severe right and moderate left neuroforaminal stenosis; L4-5 abundance of epidural fat with disc bulge and facet joint arthropathy resulting in severe spinal canal stenosis with moderate bilateral foraminal stenosis; L5-S1 abundance of epidural fat and facet joint arthropathy with moderate to severe bilateral foraminal stenosis Assessment: Inability to ambulate due to lower extremity weakness Lower extremity leg weakness 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 Patient does continue to have significant difficulty with her lower extremities. She is unable to weight-bear on the left lower extremity. She has had difficulty over the past couple years but her symptoms have been significantly worsening over the past week and a half. She has lower extremity radiculopathy with weakness. We have obtained lumbar MRI imaging which does show significant multilevel spinal stenosis at L3-4 and L4-5. 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 Currently, we will plan to obtain nuclear medicine whole-body bone scan imaging as well as thoracic MRI imaging. We did discuss her MRI imaging and that we will plan to obtain further imaging. We also discussed the possibility of bracing but that we would wait to discuss the possibility of bracing depending on her other imaging. If she were to have a thoracic compression fracture we may plan to prescribe a TLSO brace. Currently, patient has been unable to weight-bear and is lying in bed. She would not need a brace while lying in bed. Patient does agree this is a good plan of care for waiting for treatment until further imaging is performed. We did discuss she does have multilevel stenosis at L3-4 and L4-5 and could be a candidate for surgical intervention if she were to fail conservative treatment options. We also did discuss that given her metastatic changes at her spine we should obtain further imaging to try to obtain a primary diagnosis. We discussed we will plan for consultation with hematology/oncology. Will plan to follow-up with the patient. Will discuss plan of care in regards to her lumbar spine in greater detail depending on further imaging. 2. She will continue to be seen and examined by medicine as well
[2023-08-13 14:18] VITALS: BP 153/91
--- NOTE | 2023-08-13 14:38 | P.CNOR ---
History of Present Illness - [facility] Consult date: 08/13/23 Requesting physician: Rayray Frank Consult reason: low back pain History of present illness: Patient is a 23-year-old female who was seen in the emergency room #3 for further evaluation of her lumbar spine. Consultation was placed after patient did have some complaints of low back pain. Lumbar CT imaging was also performed which showed an L4-5 left paracentral disc protrusion with some left foraminal narrowing. Patient had presented to the emergency department for treatment evaluation of seizure activity after drinking at a hotel. She sustained a seizure prior to her presentation to the emergency department and another seizure upon arrival. She is being seen by neurology. They have ordered an EEG. She was given a loading dose of Keppra. Her Lamictal was also restarted. She is also on Ativan. Currently, patient is significantly drowsy at the bedside. She is arousable but is unable to answer any questions appropriately or follow any commands. Patient is being seen and examined by medicine as well. Past Medical History Smoking Status: Unknown if ever smoked Past Alcohol Use History: Unable to Obtain Past Drug Use History: Unable to Obtain Medications and Allergies Home Medications Medication Instructions Recorded Confirmed Type Cyclobenzaprine [Flexeril] 10 mg PO TID PRN 08/13/23 08/13/23 History NIFEdipine XL [Procardia Xl] 30 mg PO DAILY 08/13/23 08/13/23 History Prochlorperazine [Compazine] 10 mg PO TID 08/13/23 08/13/23 History QUEtiapine [SEROquel] 200 mg PO HS 08/13/23 08/13/23 History clindamycin HCL 300 mg PO BID-W/MEALS 08/13/23 08/13/23 History lamoTRIgine [LaMICtal] 25 mg PO BID 08/13/23 08/13/23 History medroxyPROGESTERone [Depo-Provera] 150 mg IM Q84D 08/13/23 08/13/23 History Allergies Allergy/AdvReac Type Severity Reaction Status Date / Time No Known Allergies Allergy Verified 08/13/23 09:18 Physical Examination Osteopathic Statement: *. No significant issues noted on an osteopathic structural exam other than those noted in the History and Physical/Consult. Physical exam: Patient is significantly drowsy and difficult to arouse at the bedside. She is not able to answer questions appropriately or follow commands for activities. Results Pertinent studies: CT of the lumbar spine taken on 08/13/2023: Overall alignment adequate maintained; no compression fracture deformity; disc bulging mid to lower lumbar spine; L4-5 left paracentral disc herniation with possible abutment of the traversing L5 nerve root; L5-S1 disc bulge - Labs Labs: Abnormal Lab Results - Last 24 Hours (Table) 08/13/23 08/13/23 Range/Units 04:59 04:59 Sodium 146 H (137-145) mmol/L Chloride 111 H (98-107) mmol/L Glucose 108 H (74-99) mg/dL Total Protein 8.7 H (6.3-8.2) g/dL U Marijuana (THC) Screen Detected H (NotDetected) H & H 08/13/23 Range/Units 04:59 Hgb 11.9 (11.4-16.0) gm/dL Hct 36.8 (34.0-46.0) % Coagulation 08/13/23 Range/Units 04:59 INR 0.9 (<1.2) Result Diagrams: 08/13/23 04:59 08/13/23 04:59 Assessment and Plan Assessment: Assessment: Status post 2 seizure-like activities L4-5 left paracentral disc herniation with possible abutment of the traversing L5 nerve root L5-S1 disc bulge History of seizure Reported low back pain Marijuana use alcohol use (1) Herniated nucleus pulposus, L4-5 left Status: Acute Code(s): M51.26 - OTHER INTERVERTEBRAL DISC DISPLACEMENT, LUMBAR REGION SNOMED Code(s): 44272980 (2) Low back pain Status: Acute Code(s): M54.50 - LOW BACK PAIN, UNSPECIFIED SNOMED Code(s): 044785597 (3) History of seizures Status: Acute Code(s): Z87.898 - PERSONAL HISTORY OF OTHER SPECIFIED CONDITIONS SNOMED Code(s): 368732964 (4) Alcohol use Status: Acute Code(s): Z78.9 - OTHER SPECIFIED HEALTH STATUS SNOMED Code(s): 879568 (5) Marijuana use Status: Acute Code(s): F12.90 - CANNABIS USE, UNSPECIFIED, UNCOMPLICATED SNOMED Code(s): 153490584 (6) Generalized seizure Status: Acute Code(s): R56.9 - UNSPECIFIED CONVULSIONS SNOMED Code(s): 751972750 Plan: Plan: 1. Patient had presented to the emergency department for treatment evaluation of seizure activity after drinking at a hotel. She sustained a seizure prior to her presentation to the emergency department and another seizure upon arrival. She is currently being seen by medicine and neurology. She is undergoing further treatment and evaluation for her seizures. Currently, she is significantly drowsy and is difficult to arouse. She is unable to answer questions appropriately or follow commands. She recently received medication in the emergency department. She had previously complained of low back pain. She presented to the emergency department for her seizures not for her low back pain. Reviewing of lumbar CT imaging does not show any compression fracture deformity or spondylolisthesis. I do not see any instability. There does appear to be an L4-5 left paracentral disc herniation with possible abutment of the traversing L5 nerve root. We would recommend her work through all conservative treatment options. It was discussed with nursing that consultation could be placed for pain management to discuss the possibility of injections. We would not plan for acute surgical intervention. She could work through further conservative treatment options in the outpatient setting including physical therapy and consultation with pain management following discharge from the hospital. Patient may follow-up with Manuel Massey PA-C or Dr. Judson Ortiz at [facility] in 2-3 weeks following discharge. If the patient has worsening symptoms during her admission, we may b e contacted for follow-up evaluation. We would currently recommend that she continue with treatment evaluation in regards to her 2 seizure-like activities. The case and imaging is reviewed. There are some changes at the lumbar spine particularly at L3-4 and L4-5. She has some history of low back pain and this certainly could be a cause for that. I do not think this requires acute inpatient care at this point but follow-up is reasonable on outpatient basis. She should continue her management for her acute seizure activity as per medicine and we will follow her up on outpatient basis. Time with Patient: Less than 30
--- NOTE | 2023-08-13 14:40 | XR ---
3 view right knee. DATE: 08/13/2023. COMPARISON: None available. MEDICAL HISTORY: Fall with swelling. FINDINGS: There is no fracture, subluxation or dislocation. The joint spaces are within normal limits. No significant knee joint effusion is seen. IMPRESSION: No acute osseous abnormality.
[2023-08-13] MEDS: lamoTRIgine 25 MG TAB PO SCH (15:58)
--- NOTE | 2023-08-14 00:25 | EEG ---
ELECTROENCEPHALOGRAM REPORT CLINICAL HISTORY: This is a 23-year-old woman with history of seizure, who presents to the emergency department because of seizure-like activity. The video EEG is obtained to evaluate for seizure epileptiform activity. RELEVANT MEDICATIONS: Lamictal, Keppra, and Ativan. EEG TYPE: A routine 21-channel EEG with video using the 10/20 electrode placement system. DESCRIPTION: Wakefulness is obtained. The background consists of [id number] voltage of 11.5 to 12 hertz activity. Also the background consists of [id number] voltage of 11.5 hertz activity intermixed with delta activity. There is no physiological stage 2 sleep architecture. There is no focal slowing. Interictal and ictal is none. ACTIVATION PROCEDURE: Photic stimulation, hyperventilation is not performed. CLINICAL INTERPRETATION: This is an abnormal routine EEG. The background slowing is suggestive of mild encephalopathy. Otherwise, there is no focal slowing, epileptiform discharge, or seizure on the EEG. Clinical correlation is recommended. ANTONIO / OMID: [id number] / ASHISH
[2023-08-14] MEDS ORDERED: THIAMINE 100 MG TAB PO SCH (09:00)
[2023-08-14] MEDS ORDERED: ENOXAPARIN 40 MG/0.4 ML SYRINGE SQ SCH (09:00)
--- NOTE | 2023-08-14 13:00 | P.DS ---
Providers Date of admission: 08/13/23 08:19 Expected date of discharge: 08/13/23 Attending physician: Manfred Davis MD Consults: 08/13/23 08:19 Consult Physician Routine Consulting Provider: Zaid Levine Consult Reason/Comments: sz Do you want consulting provider notified?: Yes Consult Physician Routine Consulting Provider: Lise Ortiz Consult Reason/Comments: Lumbar disc herniation Do you want consulting provider notified?: Yes Primary care physician: Stated None Hospital Course: * 23-year-old patient with past medical history significant for seizure disorder presents to the emergency department with episode of tonic-clonic seizure. Patient was accompanied by her . They were at a local motel the patient and were having her drink. Apparently they went to sleep and when she woke up patient had an episode of tonic-clonic seizure. Patient reportedly had a second episode of seizure and upon arrival in the emergency patient was noted to be postictal * Workup initiated in ER included a CT brain which was negative for acute process * Patient had a fall per documentation prior to admission hence CT lumbar spine was obtained which did show disc bulging and small paracentral herniation at L4-L5 was noted, disc bulging L5-S1 was noted as well * While in the ER patient was given 1 dose of Keppra loading dose, Ativan and fluid bolus * Workup in ER included basic metabolic panel which showed sodium of 146 potassium 4.1 chloride 111 BUN and creatinine within normal limits blood glucose of 108 * CBC obtained showed WBC 6.9 hemoglobin 11.9 platelet count of 358 INR of 0.9 * Urine analysis essentially negative urine drug screen positive for marijuana serum alcohol level 14 * Patient was admitted to medical floor with consultation from Ortho as well as neurology * Workup was initiated however later in the day patient left AGAINST MEDICAL ADVICE Assessment and plan * History of seizure disorder with tonic-clonic seizure * Alcohol use * Acute hypernatremia * Lumbar spine disc herniation mild, with acute back pain * In regards to seizure, CT head obtained negative, neurology consulted as needed Ativan, patient was started on IV Keppra, Lamictal level sent, Lamictal resumed * In regards to alcohol use, continue patient on withdrawal protocol, Ativan as needed continue thiamine * In regards to acute hypernatremia, follow-up on basic metabolic panel, started on fluid resuscitation * In regards to lumbar disc herniation as needed lidocaine patch ordered, orthospine consulted * Left AGAINST MEDICAL ADVICE understand the risk of decompensation to the point that patient can have a fatal event Patient Condition at Discharge: Serious Plan - Discharge Summary New Discharge Prescriptions: No Action medroxyPROGESTERone [Depo-Provera] 150 mg IM Q84D lamoTRIgine [LaMICtal] 25 mg PO BID QUEtiapine [SEROquel] 200 mg PO HS NIFEdipine XL [Procardia Xl] 30 mg PO DAILY Prochlorperazine [Compazine] 10 mg PO TID Cyclobenzaprine [Flexeril] 10 mg PO TID PRN PRN Reason: Muscle Spasm clindamycin HCL 300 mg PO BID-W/MEALS Discharge Medication List Cyclobenzaprine [Flexeril] 10 mg PO TID PRN 08/13/23 [History] NIFEdipine XL [Procardia Xl] 30 mg PO DAILY 08/13/23 [History] Prochlorperazine [Compazine] 10 mg PO TID 08/13/23 [History] QUEtiapine [SEROquel] 200 mg PO HS 08/13/23 [History] clindamycin HCL 300 mg PO BID-W/MEALS 08/13/23 [History] lamoTRIgine [LaMICtal] 25 mg PO BID 08/13/23 [History] medroxyPROGESTERone [Depo-Provera] 150 mg IM Q84D 08/13/23 [History] Follow up Appointment(s)/Referral(s): Manuel Massey, PARESH [PHYSICIAN SOIL FERTILITY SPECIALIST] - 3 Weeks (Patient may follow-up with Manuel Massey PA-C or Dr. Judson Ortiz at [facility] in 3 weeks following discharge. ) None,Stated [Primary Care Provider] - 1-2 days Patient Instructions/Handouts: Seizure/Epilepsy Discharge Instructions & Follow-Up Discharge Disposition: LEFT AGAINST MEDICAL ADVICE
== END 2023-08-13 17:18 | disposition left against medical advice (07) ==
LOC: EC 04:47 → 5NMEDONC 08:19
PROVIDERS: ADMIT Internal Medicine; ATTEND Internal Medicine
DX: G40.409 Other generalized epilepsy and epileptic syndromes, not intractable, without status epilepticus (principal); G93.40 Encephalopathy, unspecified; M51.26 Other intervertebral disc displacement, lumbar region; M51.27 Other intervertebral disc displacement, lumbosacral region; E87.0 Hyperosmolality and hypernatremia; F12.90 Cannabis use, unspecified, uncomplicated; F10.90 Alcohol use, unspecified, uncomplicated; Y90.0 Blood alcohol level of less than 20 mg/100 ml; Z79.899 Other long term (current) drug therapy; Z53.29 Procedure and treatment not carried out because of patient's decision for other reasons
CPT/HCPCS: 96376; 96361; 96372; 96374; 96375; 99285; 36415; 95816; 93005; 80053; 80175; 84484; 85025; 85610; 85730; 81003; 81025; 80306; 73562; 71045; 74018; 72131; 70450; G0378; G0480; J2060; J2270; J0780; J2405; J1953; 80320

== ENCOUNTER 2023-08-19 14:06 | Emergency (ER) | payer MEDICARE, OTHER ==
--- NOTE | 2023-08-19 14:16 | ED ---
General Adult HPI - General Chief complaint: Seizure Stated complaint: Seizure Time Seen by Provider: 08/19/23 14:09 Source: patient, RN/MD Mode of arrival: wheelchair - History of Present Illness Initial comments: Dictation was produced using [employer] dictation software. please excuse any grammatical, word or spelling errors. Chief Complaint: 23-year-old female brought to the emergency department for seizure History of Present Illness: Patient 23-year-old female rushed from triage for seizure. Unable to obtain ROS secondary to mental status - Related Data Home Medications Medication Instructions Recorded Confirmed Cyclobenzaprine [Flexeril] 10 mg PO TID PRN 08/13/23 08/19/23 NIFEdipine XL [Procardia Xl] 30 mg PO DAILY 08/13/23 08/19/23 QUEtiapine [SEROquel] 200 mg PO HS 08/13/23 08/19/23 lamoTRIgine [LaMICtal] 25 mg PO BID 08/13/23 08/19/23 medroxyPROGESTERone [Depo-Provera] 150 mg IM Q84D 08/13/23 08/19/23 Allergies Allergy/AdvReac Type Severity Reaction Status Date / Time No Known Allergies Allergy Verified 08/19/23 15:54 Review of Systems ROS Statement: Those systems with pertinent positive or pertinent negative responses have been documented in the HPI. ROS Other: All systems not noted in ROS Statement are negative. Past Medical History Smoking Status: Unknown if ever smoked Past Alcohol Use History: Unable to Obtain Past Drug Use History: Unable to Obtain General Exam - General Exam Comments Initial Comments: PHYSICAL EXAM: General Impression: Flexion and extension movements. Patient does not have any stiffening of the lower extremities HEENT: Normocephalic atraumatic, extra-ocular movements intact, pupils equal and reactive to light bilaterally, mucous membranes moist. Cardiovascular: Heart regular rate and rhythm Chest: no retractions, no tachypnea Abdomen: abdomen soft, non-tender, non-distended, no organomegaly Musculoskeletal: Pulses present and equal in all extremities, no peripheral edema Motor: no focal deficits noted Neurological: Shaking of the extremities Skin: Intact with no visualized rashes Course Vital Signs 08/19/23 08/19/23 14:10 17:15 Temperature 99.9 F H 98.6 F Pulse Rate 98 99 Respiratory 20 18 Rate Blood Pressure 141/89 146/111 O2 Sat by Pulse 95 100 Oximetry - Reevaluation(s) Reevaluation #1: 08/19/23 14:15 Patient was seen immediately in trauma bay #1. She was having tonic-clonic like activity however not classic for seizure-like activity. Patient did have a gag reflex after being tested and all of a sudden she woke up and asked where she was and where is her baby. There was no observed postictal state. presentation consistent with pseudoseizure. EKG Findings - EKG Comments: EKG Findings:: My EKG interpretation: Ventricular rate 98, sinus rhythm,. #105, QRS 83, QTc 396. No ID prolongation, no QTC prolongation, no ST or T-wave changes noted. Overall, this EKG is unremarkable Medical Decision Making - Medical Decision Making Was pt. sent in by a medical professional or institution (, PA, BANKER MASON, urgent care, hospital, or fpc...) When possible be specific @ -No Did you speak to anyone other than the patient for history (EMS, parent, family, police, friend...)? What history was obtained from this source @ -No Did you review nursing and triage notes (agree or disagree)? Why? @ -I reviewed and agree with nursing and triage notes Were old charts reviewed (outside hosp., previous admission, EMS record, old EKG, old radiological studies, urgent care reports/EKG's, fpc records)? Report findings @ -No old charts were reviewed Differential Diagnosis (chest pain, altered mental status, abdominal pain women, abdominal pain men, vaginal bleeding, musculoskeletal, weakness, fever, dyspnea, syncope, headache, dizziness, GI bleed, back pain, seizure, CVA, palpatations, mental health)? @ -Differential Seizure: Recurrent seizure disorder, febrile seizure, alcohol withdrawal, stimulants, meningitis, encephalitis, intercranial hemorrhage, intracranial tumor, stroke, eclampsia, thyrotoxicosis, hypocalcemia, hyponatremia, hypernatremia, hypomagnesemia, psychogenic, this is not meant to be an all-inclusive list. EKG interpreted by me (3pts min.). @ -See above X-rays interpreted by me (1pt min.). @ -None done CT interpreted by me (1pt min.). @ -None done U/S interpreted by me (1pt. min.). @ -None done What testing was considered but not performed or refused? (CT, X-rays, U/S, labs)? Why? @ -None What meds were considered but not given or refused? Why? @ -None Did you discuss the management of the patient with other professionals (professionals i.e. , PA, BANKER MASON, lab, RT, psych nurse, psychiatric social worker, marketing director, teacher, surveillance sensor officer, counter caser)? Give summary @ -No Was smoking cessation discussed for >3mins.? @ -No Was critical care preformed (if so, how long)? @ -No Were there social determinants of health that impacted care today? How? (Homelessness, low income, unemployed, alcoholism, drug addiction, transportation, low edu. Level, literacy, decrease access to med. care, longterm, rehab)? @ -No Was there de-escalation of care discussed even if they declined (Discuss DNR or withdrawal of care, Hospice)? DNR status @ -No What co-morbidities impacted this encounter? (DM, HTN, Smoking, COPD, CAD, Cancer, CVA, ARF, Chemo, Hep., AIDS, mental health diagnosis, sleep apnea, morbid obesity)? @ -None Was patient admitted / discharged? Hospital course, mention meds given and route, prescriptions, significant lab abnormalities, going to OR and other pertinent info. @ -23-year-old female presents to the ER for pseudoseizure. Vital signs stable. Laboratory evaluation unremarkable. Patient awake alert oriented at the bedside. She is complaining of some back pain. Patient given some doses of analgesia. Patient observed emergency department for 3 hours. Discharged. Patient given oral dose of potassium Undiagnosed new problem with uncertain prognosis? @ -No Drug Therapy requiring intensive monitoring for toxicity (Heparin, Nitro, Insulin, Cardizem)? @ -No Were any procedures done? @ -No Diagnosis/symptom? Acute, or Chronic, or Acute on Chronic? Uncomplicated (w ithout systemic symptoms) or Complicated (systemic symptoms)? @ -Pseudoseizure Side effects of treatment? @ -No Exacerbation, Progression, or Severe Exacerbation? @ -No Poses a threat to life or bodily function? How? (Chest pain, USA, [place], pneumonia, PE, COPD, DKA, ARF, appy, cholecystitis, CVA, Diverticulitis, Homicidal, Suicidal, threat to staff... and all critical care pts) @ -No - Lab Data Result diagrams: 08/19/23 14:09 08/19/23 14:09 Lab Results 08/19/23 08/19/23 08/19/23 Range/Units 14:09 14:09 14:20 WBC 10.2 (3.8-10.6) k/uL RBC 4.11 (3.80-5.40) m/uL Hgb 11.4 (11.4-16.0) gm/dL Hct 35.1 (34.0-46.0) % MCV 85.2 (80.0-100.0) fL MCH 27.7 (25.0-35.0) pg MCHC 32.6 (31.0-37.0) g/dL RDW 14.0 (11.5-15.5) % Plt Count 386 (150-450) k/uL MPV 6.8 Neutrophils % 64 % Lymphocytes % 28 % Monocytes % 5 % Eosinophils % 1 % Basophils % 1 % Neutrophils # 6.5 (1.3-7.7) k/uL Lymphocytes # 2.9 (1.0-4.8) k/uL Monocytes # 0.5 (0-1.0) k/uL Eosinophils # 0.1 (0-0.7) k/uL Basophils # 0.1 (0-0.2) k/uL Sodium 141 (137-145) mmol/L Potassium 3.0 L (3.5-5.1) mmol/L Chloride 100 (98-107) mmol/L Carbon Dioxide 33 H (22-30) mmol/L Anion Gap 8 mmol/L BUN 12 (7-17) mg/dL Creatinine 0.76 (0.52-1.04) mg/dL Est GFR (CKD-EPI)AfAm >90 (>60 ml/min/1.73 sqM) Est GFR (CKD-EPI)NonAf >90 (>60 ml/min/1.73 sqM) Glucose 106 H (74-99) mg/dL POC Glucose (mg/dL) 102 (70-110) mg/dL POC Glu Warp Dyeing Tender ID Juanita Duran Calcium 9.6 (8.4-10.2) mg/dL Disposition Clinical Impression: Seizure Disposition: HOME SELF-CARE Condition: Good Instructions (If sedation given, give patient instructions): Recurrent Seizures in Adults (ED) Is patient prescribed a controlled substance at d/c from ED?: No Referrals: None,Stated [Primary Care Provider] - 1-2 days Time of Disposition: 18:27
[2023-08-19 14:22] LABS: Glucose,Whole Blood 102 mg/dL (70-110)
[2023-08-19 14:30] LABS: Basophils # (A) 0.1 k/uL (0-0.2); Basophils % (A) 1 %; Eosinophils # (A) 0.1 k/uL (0-0.7); Eosinophils % (A) 1 %; HCT 35.1 % (34.0-46.0); HGB 11.4 gm/dL (11.4-16.0); Lymphocytes # (A) 2.9 k/uL (1.0-4.8); Lymphocytes % (A) 28 %; MCH 27.7 pg (25.0-35.0); MCHC 32.6 g/dL (31.0-37.0); MCV 85.2 fL (80.0-100.0); Mean Platelet Volume 6.8; Monocytes # (A) 0.5 k/uL (0-1.0); Monocytes % (A) 5 %; Neutrophils # (A) 6.5 k/uL (1.3-7.7); Neutrophils % (A) 64 %; Platelet Count 386 k/uL (150-450); RBC 4.11 m/uL (3.80-5.40); WBC 10.2 k/uL (3.8-10.6)
[2023-08-19 14:59] LABS: African American GFR (CKD) >90 (>60 ml/min/1.73 sqM); Anion Gap 8 mmol/L; Blood Urea Nitrogen 12 mg/dL (7-17); Calcium 9.6 mg/dL (8.4-10.2); Carbon Dioxide 33 mmol/L (22-30); Chloride 100 mmol/L (98-107); Glucose 106 mg/dL (74-99); Non-African American GFR(CKD) >90 (>60 ml/min/1.73 sqM); Sodium 141 mmol/L (137-145)
[2023-08-19] MEDS ORDERED: oxyCODONE-APAP 10-325MG 1 EACH TAB PO STA (15:58)
[2023-08-19] MEDS: MORPHINE SULFATE 4 MG/ML SYRINGE IV STA ×2 (16:40→18:45)
[2023-08-19 17:41] VITALS: RESP 18
[2023-08-19] MEDS: ONDANSETRON 4 MG/2 ML VIAL IVP STA (17:48)
[2023-08-19] MEDS: POTASSIUM CHLORIDE ER 20 MEQ TAB.ER PO STA (18:48)
[2023-08-19 19:03] VITALS: BP 138/106; PULSE 98; TEMP 97.6
== END 2023-08-19 19:10 | disposition home or self-care (01) ==
LOC: EC 14:06
DX: R56.9 Unspecified convulsions (principal)
CPT/HCPCS: 36415; 93005; 80048; 85025; 81025; 99284; 96374; 96375; 96376; J2270; J2405

== ENCOUNTER 2023-08-20 08:53 | Observation (INO) | payer MEDICARE, OTHER ==
--- NOTE | 2023-08-20 09:14 | ED ---
General Adult HPI - General Stated complaint: Seizure Time Seen by Provider: 08/20/23 09:05 - History of Present Illness Initial comments: Dictation was produced using [employer] dictation software. please excuse any grammatical, word or spelling errors. Chief Complaint: 23-year-old female presents to the ER for seizure History of Present Illness: Patient 23-year-old female she recently moved into the area. She has of late she is well-known to our emergency department for pseudoseizures. Apparently she was brought in from the urgent care. She took her son to the urgent care when all of a sudden she started to have was described a seizure. EMS brought patient to the emergency room. There is no history present illness to suggest she had a postictal state. Patient states that her pseudoseizures are secondary to her back pain. She does report taking seizure medication however has not been noncompliant. She states that the medication starts with the L. The ROS documented in this emergency department record has been reviewed and confirmed by me. Those systems with pertinent positive or negative responses have been documented in the HPI. All other systems are other negative and/or noncontributory. - Related Data Home Medications Medication Instructions Recorded Confirmed Cyclobenzaprine [Flexeril] 10 mg PO TID PRN 08/13/23 08/19/23 NIFEdipine XL [Procardia Xl] 30 mg PO DAILY 08/13/23 08/19/23 QUEtiapine [SEROquel] 200 mg PO HS 08/13/23 08/19/23 lamoTRIgine [LaMICtal] 25 mg PO BID 08/13/23 08/19/23 medroxyPROGESTERone [Depo-Provera] 150 mg IM Q84D 08/13/23 08/19/23 Allergies Allergy/AdvReac Type Severity Reaction Status Date / Time No Known Allergies Allergy Verified 08/20/23 09:15 Review of Systems ROS Statement: Those systems with pertinent positive or pertinent negative responses have been documented in the HPI. ROS Other: All systems not noted in ROS Statement are negative. Past Medical History Smoking Status: Unknown if ever smoked Past Alcohol Use History: Unable to Obtain Past Drug Use History: Unable to Obtain General Exam - General Exam Comments Initial Comments: PHYSICAL EXAM: General Impression: Alert and oriented x3, not in acute distress HEENT: Normocephalic atraumatic, extra-ocular movements intact, pupils equal and reactive to light bilaterally, mucous membranes moist. Cardiovascular: Heart regular rate and rhythm Chest: Able to complete full sentences, no retractions, no tachypnea Abdomen: abdomen soft, non-tender, non-distended, no organomegaly Musculoskeletal: Pulses present and equal in all extremities, no peripheral edema Motor: no focal deficits noted Neurological: CN II-XII grossly intact, no focal motor or sensory deficits noted Skin: Intact with no visualized rashes Psych: Normal affect and mood Course Vital Signs 08/20/23 09:10 Temperature 98.3 F Pulse Rate 94 Respiratory 16 Rate Blood Pressure 133/99 O2 Sat by Pulse 100 Oximetry Medical Decision Making - Medical Decision Making Was pt. sent in by a medical professional or institution (, PA, [employer]LE E[employer] DEVELOPER, urgent care, hospital, or mcc...) When possible be specific @ -[No] Did you speak to anyone other than the patient for history (EMS, parent, family, police, friend...)? What history was obtained from this source @ -[No] Did you review nursing and triage notes (agree or disagree)? Why? @ -[I reviewed and agree with nursing and triage notes] Were old charts reviewed (outside hosp., previous admission, EMS record, old EKG, old radiological studies, urgent care reports/EKG's, mcc records)? Report findings @ -Electronic medical record was reviewed. Earlier this week patient was evaluated by neurology and was started on seizure medications. Differential Diagnosis (chest pain, altered mental status, abdominal pain women, abdominal pain men, vaginal bleeding, musculoskeletal, weakness, fever, dyspnea, syncope, headache, dizziness, GI bleed, back pain, seizure, CVA, palpatations, mental health)? @ -Differential Seizure: Recurrent seizure disorder, febrile seizure, alcohol withdrawal, stimulants, meningitis, encephalitis, intercranial hemorrhage, intracranial tumor, stroke, eclampsia, thyrotoxicosis, hypocalcemia, hyponatremia, hypernatremia, hypomagnesemia, psychogenic, this is not meant to be an all-inclusive list. EKG interpreted by me (3pts min.). @ -[None done] X-rays interpreted by me (1pt min.). @ -None done CT interpreted by me (1pt min.). @ -None done U/S interpreted by me (1pt. min.). @ -None done What testing was considered but not performed or refused? (CT, X-rays, U/S, labs)? Why? @ -None What meds were considered but not given or refused? Why? @ -None Did you discuss the management of the patient with other professionals (professionals i.e. , PA, ORACLE ETL DEVELOPER, lab, RT, psych nurse, social service director, top coater, teacher, public information officer, egg caser)? Give summary @ -Case discussed with hospitalist for admission Was smoking cessation discussed for >3mins.? @ -No Was critical care preformed (if so, how long)? @ -No Were there social determinants of health that impacted care today? How? (Homelessness, low income, unemployed, alcoholism, drug addiction, transportation, low edu. Level, literacy, decrease access to med. care, long term, rehab)? @ -No Was there de-escalation of care discussed even if they declined (Discuss DNR or withdrawal of care, Hospice)? DNR status @ -No What co-morbidities impacted this encounter? (DM, HTN, Smoking, COPD, CAD, Cancer, CVA, ARF, Chemo, Hep., AIDS, mental health diagnosis, sleep apnea, morbid obesity)? @ -None Was patient admitted / discharged? Hospital course, mention meds given and route, prescriptions, significant lab abnormalities, going to OR and other pertinent info. @ -23-year-old female recently moved to the area. She has been in the ER frequently multiple occasions for pseudoseizures. Vital signs upon arrival are within acceptable limits. Patient well-appearing at the bedside. Patient multiple episodes of tonic-clonic activity. Did not seem classic for any seizure-like activity. Of note however patient was seen by neurologist recently in our facility and was diagnosed with seizure disorder given prescription for seizure medicines. There is concern that patient has underlying seizure disorder along with episodes of pseudoseizure. Given that this patient is second time to the ER in the last 24 hours we will admit patient observation consultation to neurology. Undiagnosed new problem with uncertain prognosis? @ -No Drug Therapy requiring intensive monitoring for toxicity (Heparin, Nitro, Insulin, Cardizem)? @ -No Were any procedures done? @ -No Diagnosis/symptom? Acute, or Chronic, or Acute on Chronic? Uncomplicated (without systemic symptoms) or Complicated (systemic symptoms)? @ -Seizure versus pseudoseizure Side effects of treatment? @ -No Exacerbation, Progression, or Severe Exacerbation? @ -No Poses a threat to life or bodily function? How? (Chest pain, USA, [place], pneumonia, PE, COPD, DKA, ARF, appy, cholecystitis, CVA, Diverticulitis, Homicidal, Suicidal, threat to staff... and all critical care pts) @ -yes - Lab Data Result diagrams: 08/20/23 09:21 08/20/23 09:21 Lab Results 08/20/23 08/20/23 Range/Units 09: 09:21 WBC 8.9 (3.8-10.6) k/uL RBC 4.84 (3.80-5.40) m/uL Hgb 13.6 (11.4-16.0) gm/dL Hct 41.5 (34.0-46.0) % MCV 85.7 (80.0-100.0) fL MCH 28.1 (25.0-35.0) pg MCHC 32.8 (31.0-37.0) g/dL RDW 14.0 (11.5-15.5) % Plt Count 379 (150-450) k/uL MPV 7.3 Neutrophils % 59 % Lymphocytes % 32 % Monocytes % 5 % Eosinophils % 2 % Basophils % 0 % Neutrophils # 5.3 (1.3-7.7) k/uL Lymphocytes # 2.8 (1.0-4.8) k/uL Monocytes # 0.4 (0-1.0) k/uL Eosinophils # 0.2 (0-0.7) k/uL Basophils # 0.0 (0-0.2) k/uL Sodium 141 (137-145) mmol/L Potassium 3.8 (3.5-5.1) mmol/L Chloride 97 L (98-107) mmol/L Carbon Dioxide 30 (22-30) mmol/L Anion Gap 14 mmol/L BUN 13 (7-17) mg/dL Creatinine 0.87 (0.52-1.04) mg/dL Est GFR (CKD-EPI)AfAm >90 (>60 ml/min/1.73 sqM) Est GFR (CKD-EPI)NonAf >90 (>60 ml/min/1.73 sqM) Glucose 104 H (74-99) mg/dL Calcium 10.1 (8.4-10.2) mg/dL Magnesium 2.2 (1.6-2.3) mg/dL Disposition Clinical Impression: Seizure Disposition: ADMITTED IP TO THIS [facility] Condition: Fair Referrals: [facility] [REFERRING] - (Contact about become established in area. ) Lise Ortiz DO [Doctor of Osteopathic Medicine] - 09/01/23 1:15 pm (Please bring ID and insurance cards. You will have new patient paperwork to complete. ) Chalo Reeder MD [REFERRING] - 08/25/23 1:00 pm (Please bring ID and insurance cards. Be prepaired to complete new patient paperwork. ) [facility] [NON-STAFF] - (Contact to become established) Forms: Community Resources, Outpatient Counseling, Personal Simulation Specialist Decision Time: 11:09
[2023-08-20 10:08] LABS: Basophils % (A) 0 %; Eosinophils # (A) 0.2 k/uL (0-0.7); Eosinophils % (A) 2 %; HCT 41.5 % (34.0-46.0); HGB 13.6 gm/dL (11.4-16.0); Lymphocytes # (A) 2.8 k/uL (1.0-4.8); Lymphocytes % (A) 32 %; MCH 28.1 pg (25.0-35.0); MCHC 32.8 g/dL (31.0-37.0); MCV 85.7 fL (80.0-100.0); Mean Platelet Volume 7.3; Monocytes # (A) 0.4 k/uL (0-1.0); Monocytes % (A) 5 %; Neutrophils # (A) 5.3 k/uL (1.3-7.7); Neutrophils % (A) 59 %; Platelet Count 379 k/uL (150-450); RBC 4.84 m/uL (3.80-5.40); WBC 8.9 k/uL (3.8-10.6)
[2023-08-20 10:18] LABS: African American GFR (CKD) >90 (>60 ml/min/1.73 sqM); Anion Gap 14 mmol/L; Blood Urea Nitrogen 13 mg/dL (7-17); Calcium 10.1 mg/dL (8.4-10.2); Carbon Dioxide 30 mmol/L (22-30); Chloride 97 mmol/L (98-107); Glucose 104 mg/dL (74-99); Magnesium 2.2 mg/dL (1.6-2.3); Non-African American GFR(CKD) >90 (>60 ml/min/1.73 sqM); Potassium 3.8 mmol/L (3.5-5.1); Sodium 141 mmol/L (137-145)
[2023-08-20] MEDS ORDERED: NALOXONE 0.4 MG/ML 1 ML VIAL IV PRN (11:06)
[2023-08-20] MEDS: SODIUM CHLORIDE 0.9% 1,000 ML IV SCH ×2 (13:12→19:42)
[2023-08-20] MEDS: LORazepam 2 MG/ML INJ IV STA (13:12)
--- NOTE | 2023-08-20 19:48 | P.CNNES ---
History of Present Illness Consult date: 08/20/23 Requesting physician: Zeferino Pruitt Reason for Consult: Seizure History of Present Illness: Patient is a 23-year-old female, who has history of seizure disorder for last 1 year, has recently visited ER 3 times in this month, came to the hospital by ambulance today at 8:53 AM for a seizure. As per EMS flowsheet, when they arrived to an urgent care for a patient with seizure. Patient was seated upright in a chair in the lobby of the urgent care, in the care of family member and urgent care staff. Patient was alert and oriented x 4 with GCS of 15, slightly lethargic. Urgent care staff reported that patient seized 2 times prior to EMS arrival to the conscious episode in between. Staff mentioned that patient brought her child in to be seen and was not a patient of the urgent care. Patient has history of seizures but did not know if she has epilepsy or not. Patient reported a possibility of being . Patient reported that she was in [facility] on yesterday for seizure as well. Patient was placed on to cot, with assist. Patient began to have some twitching activity but was alert and oriented throughout. Capillary blood glucose was 134 mg/dL. Patient continued to have twitching episodes off and on while in EMS care but remained alert and oriented throughout. Her vitals at the scene was blood pressure 141/100, pulse rate 93, respirations 16, saturation 98%, blood sugar 134. Temperature 98.1. Patient's blood test shows normal CBC, basic metabolic panel. Her urine hCG was negative as of yesterday. Her urine drug screen was positive for marijuana on 08/13/2023. Lamictal level 0.3 (2-15). Patient came to the ER a day prior, yesterday as well and was seen by Dr. Pruitt, who witnessed a grand mal seizure and patient woke up without any postictal state, asking for her child. He suspected pseudoseizures. Patient was sent home, and then came back again as above. Patient was recently seen by Dr. Zaid Levine on 08/13/2023, when she has presented with tonic-clonic seizure. She had a second seizure when she arrived to the ER. In the ER patient was given Ativan 2 mg once and then Keppra 2 g. Patient was discharged on Keppra 500 mg twice daily and was continued on Lamictal 25 mg twice daily that she was taking at home. He recommended to gradually increase dose of Lamictal to 100 mg twice daily and when therapeutic level has achieved, to wean off Keppra. Patient had an EEG performed, which was abnormal due to background slowing suggestive of mild encephalopathy. No epileptiform activity was seen. Patient takes Lamictal 25 mg twice daily, Seroquel 200 mg at bedtime, nifedipine, Flexeril 10 mg 3 times daily as needed and Depo-Provera. Patient at present tells me that seizures comes on their own. She is not seeing any neurologist. Patient complains of feeling tired, slightly postictal. Review of Systems As mentioned above in detail. Past Medical History History of Any Multi-Drug Resistant Organisms: None Reported Smoking Status: Unknown if ever smoked Past Alcohol Use History: Unable to Obtain Past Drug Use History: Unable to Obtain Medications and Allergies Home Medications Medication Instructions Recorded Confirmed Type Cyclobenzaprine [Flexeril] 10 mg PO TID PRN 08/13/23 08/20/23 History NIFEdipine XL [Procardia Xl] 30 mg PO DAILY 08/13/23 08/20/23 History QUEtiapine [SEROquel] 200 mg PO HS 08/13/23 08/20/23 History lamoTRIgine [LaMICtal] 25 mg PO BID 08/13/23 08/20/23 History medroxyPROGESTERone [Depo-Provera] 150 mg IM Q84D 08/13/23 08/20/23 History Allergies Allergy/AdvReac Type Severity Reaction Status Date / Time No Known Allergies Allergy Verified 08/20/23 11:49 Physical Examination - Vital Signs Vital Signs: Vital Signs Temp Pulse Resp BP Pulse Ox 08/20/23 19:02 100 16 93/71 98 08/20/23 18:00 98 16 125/85 98 08/20/23 17:00 98 18 132/96 95 08/20/23 16:00 93 14 100/72 97 08/20/23 15:00 86 14 91/61 98 08/20/23 14:00 82 14 115/87 100 08/20/23 13:00 96 16 124/99 100 08/20/23 12:29 84 14 128/92 100 08/20/23 11:04 86 20 138/97 100 08/20/23 10:45 96 209/102 100 08/20/23 10:35 93 20 226/112 08/20/23 09:10 98.3 F 94 16 133/99 100 Intake and Output 08/20/23 08/20/23 08/20/23 06:59 14:59 22:59 Other: Weight 60.781 kg Patient is a young Afro-English female, in no acute distress. Patient is slightly somnolent, Patient does become alert awake oriented to time place and person. She knows it is July 2023 and that she is in [place] in [facility] in [place]. Speech and language functions are normal. Patient can name and repeat very well. No aphasia or dysarthria. Attention, concentration is slightly diminished and fund of knowledge is adequate. On cranial nerve examination, pupils are equal, round and reacting to light, visual harris are full on confrontation, with no neglect on double simultaneous stimulation. Extraocular muscles are intact with no nystagmus. Face is symmetric, tongue protrudes to the midline. Palatal elevation and sensation normal, hearing and shoulder shrug normal, facial sensation normal. On muscle strength testing, there is no pronator drift and the strength is normal in arms and legs distally and proximally. Deep tendon reflexes are symmetric (right/left) 1+ to 2 and plantars downgoing. Sensory to touch is equal with no neglect on double simultaneous stimulation. Cerebellar function showed no ataxia for [id number] testing. No dysdiadochokinesia. No ataxia for [id number] testing on either side. Tone and bulk of muscles normal. Gait deferred.. On general examination, there is no carotid bruit or murmur, S1-S2 audible. Chest is clear on consultation. Abdomen is soft nontender. No organomegaly, bowel sounds present. Peripheral pulses are present. No peripheral edema. Results - Laboratory Findings CBC and BMP: 08/20/23 09:21 08/20/23 09:21 Abnormal Lab Findings: Abnormal Labs 08/20/23 09:21 Chloride 97 L Glucose 104 H Assessment and Plan Assessment: * Seizure disorder, came with breakthrough seizures. Uncertain if epileptic or nonepileptic seizures. * Marijuana use Plan: * Patient was recently seen by Dr. Levine, who recommended to gradually increase Lamictal to 100 mg twice daily. * Recommend increase Lamictal to 50 mg twice daily from tonight. After 1 week, increase dose to 100 mg twice daily. Patient informed to stop Lamictal if she gets any rash. * Keppra 500 mg twice daily for 7 days and then stop. * Patient informed of [place] state law of no driving unless seizure-free for 6 months, climbing ladders, operate dangerous machinery or unsupervised swimming. * Neurologically clear for discharge when mentation is normal. Recommend follow-up with neurologist in 1 to 2 weeks. * Thank you for the consult.
[2023-08-20] MEDS: lamoTRIgine 25 MG TAB PO SCH (20:20)
[2023-08-20] MEDS: levETIRAcetam 500 MG TAB PO SCH (20:20)
[2023-08-20] MEDS ORDERED: lamoTRIgine 25 MG TAB PO SCH (21:00)
[2023-08-20] MEDS: HEPARIN SODIUM,PORCINE 5,000 UNIT/ML 1 ML VIAL SQ SCH (23:03)
--- NOTE | 2023-08-20 23:30 | P.HPIM ---
History of Present Illness H&P Date: 08/20/23 Chief Complaint: Seizures Patient is a 23-year-old female with a known history of hypertension, recent admission with sepsis and was discharged home on 08/14/2023, alcohol use, history of marijuana use and lumbar disc herniation and chronic back pain was sent from urgent care facility as a staff noted her having seizure episodes x 2. Patient states that she took her son to the urgent care and all of a sudden she was having seizures. Patient states that she lost consciousness for few seconds and was admitted that she is being brought to the hospital by EMS. Denied having generalized weakness postictal state. Currently patient is awake alert and oriented x 3. Denies any bladder or bowel incontinence. Patient was seen in the ER previously and thought to be having pseudoseizures. Patient states that her seizures are due to her back pain. Patient was seen by orthopedic surgery during recent admission due to chronic back pain. CT lumbar spine was done at the time showed no vertebral compression collapse or malalignment. Bulging disc in the mid to lower lumbar spine. There may be small superimposed left paracentral herniation at L4-L5 that could be about the traversing left L5 nerve root. Mild interval narrowing of the spinal canal. Patient was recommended to follow-up as an outpatient. Patient was also seen by neurology during recent admission and was started on Lamictal. Recommend dose to be increased to 100 mg twice daily. Patient states that she has been taking her medications regularly. EKG showed sinus rhythm with short TN interval. Laboratory pressure WBC 8.9 hemoglobin 13.6 and platelets 379 Sodium 141 potassium 3.8 chloride 97 bicarb is 30 BUN 13 and creatinine 0.87 and blood sugar 104. Magnesium 2.2. EEG during recent admission on 08/13/2023 showed abnormal routine EEG. The background slowing is suggestive of mild encephalopathy. No focal slowing, epileptiform discharges or seizures on the EEG. Patient left AMA during recent admission. Review of Systems Constitutional: Patient denies any fever or chills . no Generalized weakness. Abdomen: Patient denied any nausea or vomiting or abd. pain Cardiovascular: Patient denies any chest pain or short of breath no palpitations. Respiratory: patient denied any cough . no sputum production. No shortness of breath Neurologic: Patient denied any numbness or tingling or headache. Musculoskeletal: Patient denies any complaints of joint swelling or deformity. Skin: Negative Psychiatric: Negative Endocrine: No heat or cold intolerance. No recent weight gain. Genitourinary: No dysuria or hematuria. All other 14 point ROS negative except the above Past Medical History History of Any Multi-Drug Resistant Organisms: None Reported Smoking Status: Unknown if ever smoked Past Alcohol Use History: Unable to Obtain Past Drug Use History: Unable to Obtain Medications and Allergies Home Medications Medication Instructions Recorded Confirmed Type Cyclobenzaprine [Flexeril] 10 mg PO TID PRN 08/13/23 08/20/23 History NIFEdipine XL [Procardia Xl] 30 mg PO DAILY 08/13/23 08/20/23 History QUEtiapine [SEROquel] 200 mg PO HS 08/13/23 08/20/23 History lamoTRIgine [LaMICtal] 25 mg PO BID 08/13/23 08/20/23 History medroxyPROGESTERone [Depo-Provera] 150 mg IM Q84D 08/13/23 08/20/23 History Allergies Allergy/AdvReac Type Severity Reaction Status Date / Time No Known Allergies Allergy Verified 08/20/23 11:49 Physical Exam Vitals: Vital Signs Temp Pulse Resp BP Pulse Ox 08/20/23 19:02 100 16 93/71 98 08/20/23 18:00 98 16 125/85 98 08/20/23 17:00 98 18 132/96 95 08/20/23 16:00 93 14 100/72 97 08/20/23 15:00 86 14 91/61 98 08/20/23 14:00 82 14 115/87 100 08/20/23 13:00 96 16 124/99 100 08/20/23 12:29 84 14 128/92 100 08/20/23 11:04 86 20 138/97 100 08/20/23 10:45 96 209/102 100 08/20/23 10:35 93 20 226/112 08/20/23 09:10 98.3 F 94 16 133/99 100 Intake and Output 08/20/23 08/20/23 08/20/23 06:59 14:59 22:59 Other: Weight 60.781 kg PHYSICAL EXAMINATION: Patient is lying in the bed comfortably, no acute distress, awake alert and oriented.. HEENT: Normocephalic. Neck is supple. Pupils reactive. Nostrils clear. Oral cavity is moist. Neck reveals no JVD, carotid bruits, or thyromegaly. CHEST EXAMINATION: Trachea is central. Symmetrical expansion. Lung harris clear to auscultation and percussion. CARDIAC: Normal S1, S2 with no gallops. No murmurs ABDOMEN: Soft. Bowel sounds present. Nontender. No organomegaly. No abdominal bruits. Extremities: reveal no edema. No clubbing or cyanosis Neurologically awake, alert, oriented x3 with well-coordinated movements. No focal deficits noted Skin: No rash or skin lesions. Psychiatric: Coperative. Nonsuicidal, Musculoskeletal: No joint swelling or deformity. Normal range of motion. Results CBC & Chem 7: 08/20/23 09:21 08/20/23 09:21 Labs: Abnormal Lab Results - Last 24 Hours (Table) 08/20/23 Range/Units 09:21 Chloride 97 L (98-107) mmol/L Glucose 104 H (74-99) mg/dL Thrombosis Risk Factor Assmnt - DVT/VTE Prophylaxis DVT/VTE Prophylaxis: Pharmacologic Prophylaxis ordered Assessment and Plan Assessment: Seizure disorder. Patient had generalized seizures x 2 when she brought her son to the urgent care facility.Epileptiform versus nonepileptiform. Recent history of generalized tonic-clonic seizures. Patient was started on Lamictal. Chronic back pain with L4-L5 left paracentral herniation mild. Was seen by orthopedic surgery during the recent admission. Recommends outpatient follow- up. Patient has been taking Flexeril as needed at home. History of alcohol use History of marijuana use Hypertension. Patient is currently hypotensive. DVT prophylaxis with heparin subcu Plan: Patient will be continued on twice daily monitoring. Continue with seizure precautions and fall precautions. Started back on Lamictal. Lamictal level was ordered. Seroquel is on hold. Patie nt will need to follow-up with [facility]. Neurology was consulted for further evaluation. Continue with pain management for low back pain. Monitor closely. Time with Patient: Greater than 30
[2023-08-21] MEDS: HYDROcodone/APAP 5-325MG 1 EACH TAB PO STA (01:52)
[2023-08-21 02:56] VITALS: BP 124/68; PULSE 64; RESP 18; TEMP 98.1
== END 2023-08-21 04:53 | disposition left against medical advice (07) ==
LOC: EC 08:53 → 6NMEDSUR 11:06
PROVIDERS: ADMIT Internal Medicine; ATTEND Internal Medicine
DX: G40.409 Other generalized epilepsy and epileptic syndromes, not intractable, without status epilepticus (principal); M51.26 Other intervertebral disc displacement, lumbar region; F12.90 Cannabis use, unspecified, uncomplicated; I10 Essential (primary) hypertension; Z79.899 Other long term (current) drug therapy; Z53.29 Procedure and treatment not carried out because of patient's decision for other reasons; Z91.148 Patient's other noncompliance with medication regimen for other reason
CPT/HCPCS: 96361 ×2; 96374; 99285; 36415; 80048; 80175; 83735; 85025; G0378 ×2; J2060

== ENCOUNTER 2023-08-23 06:04 | Emergency (ER) | payer MEDICARE, OTHER ==
[2023-08-23 06:20] VITALS: TEMP 98.1
--- NOTE | 2023-08-23 06:54 | ED ---
Seizure HPI - General Chief Complaint: Seizure Stated Complaint: Altered status Time Seen by Provider: 08/23/23 06:11 Source: patient, RN notes reviewed Mode of arrival: ambulatory Limitations: no limitations - History of Present Illness Initial Comments: 23-year-old female presents emergency department with chief complaint of seizure. Patient has been seen here recently for seizures was admitted patient left AGAINST MEDICAL ADVICE. Patient did have evaluation by neurology. She states that she is just stressed out over her at home. She denies being suicidal homicidal. Patient states that she is on Keppra and Lamictal. She did not take her Keppra this morning she states she did take her Lamictal. Patient denies any focal weakness or pain. - Related Data Home Medications Medication Instructions Recorded Confirmed Cyclobenzaprine [Flexeril] 10 mg PO TID PRN 08/13/23 08/20/23 NIFEdipine XL [Procardia Xl] 30 mg PO DAILY 08/13/23 08/20/23 QUEtiapine [SEROquel] 200 mg PO HS 08/13/23 08/20/23 lamoTRIgine [LaMICtal] 25 mg PO BID 08/13/23 08/20/23 medroxyPROGESTERone [Depo-Provera] 150 mg IM Q84D 08/13/23 08/20/23 Allergies Allergy/AdvReac Type Severity Reaction Status Date / Time No Known Allergies Allergy Verified 08/23/23 06:15 Review of Systems ROS Statement: Those systems with pertinent positive or pertinent negative responses have been documented in the HPI. ROS Other: All systems not noted in ROS Statement are negative. Past Medical History Past Medical History: Seizure Disorder History of Any Multi-Drug Resistant Organisms: None Reported Past Surgical History: No Surgical Hx Reported Past Psychological History: No Psychological Hx Reported Smoking Status: Never smoker Past Alcohol Use History: None Reported Past Drug Use History: None Reported General Exam Limitations: no limitations General appearance: alert, in no apparent distress Head exam: Present: atraumatic, normocephalic, normal inspection Eye exam: Present: normal appearance, PERRL, EOMI. Absent: scleral icterus, conjunctival injection, periorbital swelling ENT exam: Present: normal exam, normal oropharynx, mucous membranes moist Neck exam: Present: normal inspection, full ROM. Absent: tenderness, meningismus, lymphadenopathy Respiratory exam: Present: normal lung sounds bilaterally. Absent: respiratory distress, wheezes, rales, rhonchi, stridor Cardiovascular Exam: Present: regular rate, normal rhythm, normal heart sounds. Absent: systolic murmur, diastolic murmur, rubs, gallop, clicks GI/Abdominal exam: Present: soft, normal bowel sounds. Absent: distended, tenderness, guarding, rebound, rigid Neurological exam: Present: alert, oriented X3 Course Vital Signs 08/23/23 08/23/23 06:13 09:27 Temperature 98.1 F Pulse Rate 104 H 103 H Respiratory 20 18 Rate Blood Pressure 123/84 138/83 O2 Sat by Pulse 100 98 Oximetry Medical Decision Making - Medical Decision Making Was pt. sent in by a medical professional or institution (, PA, DIVERSITY INTERN, urgent care, hospital, or usp...) When possible be specific @ -No Did you speak to anyone other than the patient for history (EMS, parent, family, police, friend...)? What history was obtained from this source @ -No Did you review nursing and triage notes (agree or disagree)? Why? @ -I reviewed and agree with nursing and triage notes Were old charts reviewed (outside hosp., previous admission, EMS record, old EKG, old radiological studies, urgent care reports/EKG's, usp records)? Report findings @ -[Reviewed recent laboratory studies, admission Differential Diagnosis (chest pain, altered mental status, abdominal pain women, abdominal pain men, vaginal bleeding, weakness, fever, dyspnea, syncope, headache, dizziness, GI bleed, back pain, seizure, CVA, palpatations, mental health, musculoskeletal)? @ -Differential Seizure: Recurrent seizure disorder, febrile seizure, alcohol withdrawal, stimulants, meningitis, encephalitis, intercranial hemorrhage, intracranial tumor, stroke, eclampsia, thyrotoxicosis, hypocalcemia, hyponatremia, hypernatremia, hypomagnesemia, psychogenic, this is not meant to be an all-inclusive list. EKG interpreted by me (3pts min.). @ -As above X-rays interpreted by me (1pt min.). @ -None done CT interpreted by me (1pt min.). @ -None done U/S interpreted by me (1pt. min.). @ -None done What testing was considered but not performed or refused? (CT, X-rays, U/S, labs)? Why? @ -None What meds were considered but not given or refused? Why? @ -None Did you discuss the management of the patient with other professionals (professionals i.e. , PA, DIVERSITY INTERN, lab, RT, psych nurse, vp digital marketing social media and crm, lamination technician, teacher, inspectors and regulatory officers, special education case manager)? Give summary @ -No Was smoking cessation discussed for >3mins.? @ -No Was critical care preformed (if so, how long)? @ -No Were there social determinants of health that impacted care today? How? (Homelessness, low income, unemployed, alcoholism, drug addiction, trans portation, low edu. Level, literacy, decrease access to med. care, penitentiary, rehab)? @ -No Was there de-escalation of care discussed even if they declined (Discuss DNR or withdrawal of care, Hospice)? DNR status @ -No What co-morbidities impacted this encounter? (DM, HTN, Smoking, COPD, CAD, Cancer, CVA, ARF, Chemo, Hep., AIDS, mental health diagnosis, sleep apnea, morbid obesity)? @ -None Was patient admitted / discharged? Hospital course, mention meds given and route, prescriptions, significant lab abnormalities, going to OR and other pertinent info. @ -Charge patient presented for possible seizure, patient had multiple recent evaluations for similar complaints. She states is related to her stress from her infant at home. She was offered EPS evaluation patient declined states that she would just like some resources. Patient will be discharged in stable condition return pressure discussed. Undiagnosed new problem with uncertain prognosis? @ -No Drug Therapy requiring intensive monitoring for toxicity (Heparin, Nitro, Insulin, Cardizem)? @ -No Were any procedures done? @ -No Diagnosis/symptom? @ -Stress reaction, seizure Acute, or Chronic, or Acute on Chronic? @ -Acute Uncomplicated (without systemic symptoms) or Complicated (systemic symptoms)? @Uncomplicated Side effects of treatment? @ -No Exacerbation, Progression, or Severe Exacerbation? @ -No Poses a threat to life or bodily function? How? (Chest pain, USA, OR, pneumonia, PE, COPD, DKA, ARF, appy, cholecystitis, CVA, Diverticulitis, Homicidal, Suicidal, threat to staff... and all critical care pts) @ -No - Lab Data Result diagrams: 08/23/23 07:35 08/23/23 07:35 Lab Results 08/23/23 08/23/23 Range/Units 07:35 07:35 WBC 9.1 (3.8-10.6) k/uL RBC 5.13 (3.80-5.40) m/uL Hgb 14.2 (11.4-16.0) gm/dL Hct 43.8 (34.0-46.0) % MCV 85.3 (80.0-100.0) fL MCH 27.7 (25.0-35.0) pg MCHC 32.5 (31.0-37.0) g/dL RDW 13.6 (11.5-15.5) % Plt Count 480 H (150-450) k/uL MPV 6.8 Neutrophils % 58 % Lymphocytes % 33 % Monocytes % 4 % Eosinophils % 1 % Basophils % 1 % Neutrophils # 5.3 (1.3-7.7) k/uL Lymphocytes # 3.0 (1.0-4.8) k/uL Monocytes # 0.4 (0-1.0) k/uL Eosinophils # 0.1 (0-0.7) k/uL Basophils # 0.1 (0-0.2) k/uL Sodium 141 (137-145) mmol/L Potassium 3.3 L (3.5-5.1) mmol/L Chloride 94 L (98-107) mmol/L Carbon Dioxide 32 H (22-30) mmol/L Anion Gap 15 mmol/L BUN 17 (7-17) mg/dL Creatinine 0.91 (0.52-1.04) mg/dL Est GFR (CKD-EPI)AfAm >90 (>60 ml/min/1.73 sqM) Est GFR (CKD-EPI)NonAf 88 (>60 ml/min/1.73 sqM) Glucose 101 H (74-99) mg/dL Calcium 10.7 H (8.4-10.2) mg/dL Magnesium 2.2 (1.6-2.3) mg/dL Total Bilirubin 1.0 (0.2-1.3) mg/dL AST 33 (14-36) U/L ALT 19 (4-34) U/L Alkaline Phosphatase 123 (38-126) U/L Total Protein 10.3 H (6.3-8.2) g/dL Albumin 5.2 H (3.5-5.0) g/dL Wheeler <0.2 mmol/L - EKG Data -: EKG Interpreted by Me EKG Comments: EKG performed at 7: 04 sinus rhythm with a rate of 110 RI 124 QRS 84 QT/QTc 307/372 Disposition Clinical Impression: Generalized seizure, Stress reaction, emotional Disposition: HOME SELF-CARE Instructions (If sedation given, give patient instructions): Seizure/Epilepsy Discharge Instructions & Follow-Up Additional Instructions: Please return to the Emergency Department if symptoms worsen or any other concerns. Is patient prescribed a controlled substance at d/c from ED?: No Referrals: None,Stated [Primary Care Provider] - 1-2 days Time of Disposition: 09:20
[2023-08-23] MEDS: LORazepam 2 MG/ML INJ IV STA (07:37)
[2023-08-23] MEDS: SODIUM CHLORIDE 0.9% 1,000 ML IV STA (07:38)
[2023-08-23] MEDS: SODIUM CHLORIDE 0.9% 500 ML 500 ML IV STA (07:43)
[2023-08-23 08:19] LABS: Basophils # (A) 0.1 k/uL (0-0.2); Basophils % (A) 1 %; Eosinophils # (A) 0.1 k/uL (0-0.7); Eosinophils % (A) 1 %; HCT 43.8 % (34.0-46.0); HGB 14.2 gm/dL (11.4-16.0); Lymphocytes % (A) 33 %; MCH 27.7 pg (25.0-35.0); MCHC 32.5 g/dL (31.0-37.0); MCV 85.3 fL (80.0-100.0); Mean Platelet Volume 6.8; Monocytes # (A) 0.4 k/uL (0-1.0); Monocytes % (A) 4 %; Neutrophils # (A) 5.3 k/uL (1.3-7.7); Neutrophils % (A) 58 %; Platelet Count 480 k/uL (150-450); RBC 5.13 m/uL (3.80-5.40); RDW 13.6 % (11.5-15.5); WBC 9.1 k/uL (3.8-10.6)
[2023-08-23 09:01] LABS: ALT 19 U/L (4-34); AST 33 U/L (14-36); African American GFR (CKD) >90 (>60 ml/min/1.73 sqM); Albumin 5.2 g/dL (3.5-5.0); Alkaline Phosphatase 123 U/L (38-126); Anion Gap 15 mmol/L; Blood Urea Nitrogen 17 mg/dL (7-17); Calcium 10.7 mg/dL (8.4-10.2); Carbon Dioxide 32 mmol/L (22-30); Chloride 94 mmol/L (98-107); Glucose 101 mg/dL (74-99); Magnesium 2.2 mg/dL (1.6-2.3); Non-African American GFR(CKD) 88 (>60 ml/min/1.73 sqM); Sodium 141 mmol/L (137-145); Total Protein 10.3 g/dL (6.3-8.2)
[2023-08-23 09:07] LABS: Potassium 3.3 mmol/L (3.5-5.1)
[2023-08-23 10:05] VITALS: BP 138/83; PULSE 103; RESP 18
[2023-08-23 10:31] LABS: Lithium <0.2 mmol/L
== END 2023-08-23 09:46 | disposition home or self-care (01) ==
LOC: EC 06:04
DX: G40.409 Other generalized epilepsy and epileptic syndromes, not intractable, without status epilepticus (principal); F43.9 Reaction to severe stress, unspecified
CPT/HCPCS: 36415; 93005; 80053; 80177; 80178; 83735; 85025; 99285; 96374; 96361 ×2; J2060

== ENCOUNTER 2023-12-16 10:20 | Emergency (ER) | payer MEDICARE, OTHER ==
[2023-12-16 10:27] LABS: Glucose,Whole Blood 140 mg/dL (70-110)
[2023-12-16 10:42] VITALS: BP 137/96; RESP 18
[2023-12-16] MEDS: SODIUM CHLORIDE 0.9% 1,000 ML IV ONE (10:42)
[2023-12-16 10:50] LABS: Basophils % (A) 0 %; Eosinophils # (A) 0.1 k/uL (0-0.7); Eosinophils % (A) 1 %; HCT 37.5 % (34.0-46.0); HGB 11.6 gm/dL (11.4-16.0); Lymphocytes # (A) 1.7 k/uL (1.0-4.8); Lymphocytes % (A) 14 %; MCH 26.4 pg (25.0-35.0); MCHC 30.8 g/dL (31.0-37.0); MCV 85.6 fL (80.0-100.0); Mean Platelet Volume 7.9; Monocytes # (A) 0.6 k/uL (0-1.0); Monocytes % (A) 5 %; Neutrophils # (A) 9.8 k/uL (1.3-7.7); Neutrophils % (A) 79 %; Platelet Count 379 k/uL (150-450); RBC 4.38 m/uL (3.80-5.40); RDW 14.2 % (11.5-15.5); WBC 12.4 k/uL (3.8-10.6)
--- NOTE | 2023-12-16 11:10 | ED ---
General Adult HPI - General Chief complaint: Seizure Stated complaint: siezure Time Seen by Provider: 12/16/23 10:21 Source: patient, RN notes reviewed, old records reviewed Mode of arrival: ambulatory Limitations: no limitations - History of Present Illness Initial comments: 23-year-old female presenting for evaluation of possible seizure. Seizure act ivity. Patient has been seen with similar episodes in the past. She has been prescribed antiepileptics but on review of her medication history she has not taken these medications in many months. Patient is shaking with a normal respiratory pattern and normal heart rate. She is unable to contribute to the history. - Related Data Home Medications Medication Instructions Recorded Confirmed No Known Home Medications 12/16/23 12/16/23 Allergies Allergy/AdvReac Type Severity Reaction Status Date / Time No Known Allergies Allergy Verified 12/16/23 11:17 Review of Systems ROS Statement: Those systems with pertinent positive or pertinent negative responses have been documented in the HPI. ROS Other: All systems not noted in ROS Statement are negative. Past Medical History Past Medical History: Seizure Disorder History of Any Multi-Drug Resistant Organisms: None Reported Past Surgical History: No Surgical Hx Reported Past Psychological History: No Psychological Hx Reported Smoking Status: Never smoker Past Alcohol Use History: None Reported Past Drug Use History: None Reported General Exam Limitations: no limitations Head exam: Present: atraumatic, normocephalic Eye exam: Present: normal appearance, PERRL ENT exam: Present: mucous membranes moist Neck exam: Present: normal inspection. Absent: meningismus Respiratory exam: Present: normal lung sounds bilaterally. Absent: respiratory distress, wheezes Cardiovascular Exam: Present: regular rate, normal rhythm GI/Abdominal exam: Present: soft. Absent: distended, tenderness, guarding Extremities exam: Present: normal inspection, normal capillary refill Skin exam: Present: warm, dry, intact Course Vital Signs 12/16/23 12/16/23 10:30 11:33 Pulse Rate 98 91 Respiratory 18 18 Rate Blood Pressure 137/96 O2 Sat by Pulse 98 97 Oximetry - Reevaluation(s) Reevaluation #1: 12/16/23 12:24 Patient is quite agitated with bizarre behavior, awaiting EPS evaluation Medical Decision Making - Medical Decision Making Was pt. sent in by a medical professional or institution (, PA, JAVA LEAD ARCHITECT, urgent care, hospital, or snf...) When possible be specific @ -No Did you speak to anyone other than the patient for history (EMS, parent, family, police, friend...)? What history was obtained from this source @ -No Did you review nursing and triage notes (agree or disagree)? Why? @ -I reviewed and agree with nursing and triage notes Were old charts reviewed (outside hosp., previous admission, EMS record, old EKG, old radiological studies, urgent care reports/EKG's, snf records)? Report findings @ -No old charts were reviewed Differential Seizure: Recurrent seizure disorder, febrile seizure, alcohol withdrawal, stimulants, meningitis, encephalitis, intercranial hemorrhage, intracranial tumor, stroke, eclampsia, thyrotoxicosis, hypocalcemia, hyponatremia, hypernatremia, hypomagnesemia, psychogenic, this is not meant to be an all-inclusive list. EKG interpreted by me (3pts min.). @ -Sinus tachycardia rate of 103, MI interval 127, QRS duration 90, QTc 410 X-rays interpreted by me (1pt min.). @ -None done CT interpreted by me (1pt min.). @ -None done U/S interpreted by me (1pt. min.). @ -None done What testing was considered but not performed or refused? (CT, X-rays, U/S, labs)? Why? @ -None What meds were considered but not given or refused? Why? @ -None Did you discuss the management of the patient with other professionals (professionals i.e. , PA, JAVA LEAD ARCHITECT, lab, RT, psych nurse, sr. social media & mobile manager, postmaster relief, teacher, medical officer psychiatry, oil field caser)? Give summary @ -No Was smoking cessation discussed for >3mins.? @ -No Was critical care preformed (if so, how long)? @ -No Were there social determinants of health that impacted care today? How? ( Homelessness, low income, unemployed, alcoholism, drug addiction, transportation, low edu. Level, literacy, decrease access to med. care, skilled nursing, rehab)? @ -No Was there de-escalation of care discussed even if they declined (Discuss DNR or withdrawal of care, Hospice)? DNR status @ -No What co-morbidities impacted this encounter? (DM, HTN, Smoking, COPD, CAD, Cancer, CVA, ARF, Chemo, Hep., AIDS, mental health diagnosis, sleep apnea, morbid obesity)? @ -None Was patient admitted / discharged? Hospital course, mention meds given and route, prescriptions, significant lab abnormalities, going to OR and other pertinent info. @ -Patient eloped prior to lab results, urinalysis, reevaluation. Undiagnosed new problem with uncertain prognosis? @ -No Drug Therapy requiring intensive monitoring for toxicity (Heparin, Nitro, Insulin, Cardizem)? @ -No Were any procedures done? @ -No Diagnosis/symptom? @ -[Seizure Acute, or Chronic, or Acute on Chronic? @ -Acute on chronic Uncomplicated (without systemic symptoms) or Complicated (systemic symptoms)? @ -Default Side effects of treatment? @ -No Exacerbation, Progression, or Severe Exacerbation? @ -No Poses a threat to life or bodily function? How? (Chest pain, [place], [place], pneumonia, PE, COPD, DKA, ARF, appy, cholecystitis, CVA, Diverticulitis, Homicidal, Suicidal, threat to staff... and all critical care pts) @ -[Undetermined - Lab Data Result diagrams: 12/16/23 10:37 12/16/23 11:26 Lab Results 12/16/23 12/16/23 12/16/23 Range/Units 10:26 10:37 11:26 WBC 12.4 H (3.8-10.6) k/uL RBC 4.38 (3.80-5.40) m/uL Hgb 11.6 (11.4-16.0) gm/dL Hct 37.5 (34.0-46.0) % MCV 85.6 (80.0-100.0) fL MCH 26.4 (25.0-35.0) pg MCHC 30.8 L (31.0-37.0) g/dL RDW 14.2 (11.5-15.5) % Plt Count 379 (150-450) k/uL MPV 7.9 Neutrophils % 79 % Lymphocytes % 14 % Monocytes % 5 % Eosinophils % 1 % Basophils % 0 % Neutrophils # 9.8 H (1.3-7.7) k/uL Lymphocytes # 1.7 (1.0-4.8) k/uL Monocytes # 0.6 (0-1.0) k/uL Eosinophils # 0.1 (0-0.7) k/uL Basophils # 0.0 (0-0.2) k/uL Sodium 147 H (137-145) mmol/L Potassium 2.5 L* (3.5-5.1) mmol/L Chloride 113 H (98-107) mmol/L Carbon Dioxide 28 (22-30) mmol/L Anion Gap 6 mmol/L BUN 12 (7-17) mg/dL Creatinine 0.46 L (0.52-1.04) mg/dL Est GFR (CKD-EPI)AfAm >90 (>60 ml/min/1.73 sqM) Est GFR (CKD-EPI)NonAf >90 (>60 ml/min/1.73 sqM) Glucose 92 (74-99) mg/dL POC Glucose (mg/dL) 140 H (70-110) mg/dL POC Glu Log Tumbler ID Jerod Yen Calcium 7.5 L (8.4-10.2) mg/dL Total Bilirubin 0.5 (0.2-1.3) mg/dL AST 15 (14-36) U/L ALT 9 (4-34) U/L Alkaline Phosphatase 83 (38-126) U/L Total Protein 6.5 (6.3-8.2) g/dL Albumin 3.5 (3.5-5.0) g/dL Disposition Clinical Impression: History of seizures Disposition: LEFT AGAINST MEDICAL ADVICE Condition: Undetermined Is patient prescribed a controlled substance at d/c from ED?: No Referrals: None,Stated [Primary Care Provider] - 1-2 days
[2023-12-16] MEDS: ACETAMINOPHEN TAB 500 MG TAB PO STA (11:28)
[2023-12-16 12:07] LABS: ALT 9 U/L (4-34); AST 15 U/L (14-36); African American GFR (CKD) >90 (>60 ml/min/1.73 sqM); Albumin 3.5 g/dL (3.5-5.0); Alkaline Phosphatase 83 U/L (38-126); Anion Gap 6 mmol/L; Blood Urea Nitrogen 12 mg/dL (7-17); Calcium 7.5 mg/dL (8.4-10.2); Carbon Dioxide 28 mmol/L (22-30); Chloride 113 mmol/L (98-107); Glucose 92 mg/dL (74-99); Non-African American GFR(CKD) >90 (>60 ml/min/1.73 sqM); Sodium 147 mmol/L (137-145); Total Bilirubin 0.5 mg/dL (0.2-1.3); Total Protein 6.5 g/dL (6.3-8.2)
[2023-12-16] MEDS: LORazepam 2 MG/ML INJ IV STA (12:32)
[2023-12-16 12:35] LABS: Potassium 2.5 mmol/L (3.5-5.1)
[2023-12-16 12:46] VITALS: PULSE 91
== END 2023-12-16 12:46 | disposition left against medical advice (07) ==
LOC: EC 10:20
DX: G40.909 Epilepsy, unspecified, not intractable, without status epilepticus (principal); R00.0 Tachycardia, unspecified; Z53.29 Procedure and treatment not carried out because of patient's decision for other reasons
CPT/HCPCS: 36415; 80053; 85025; 93005; 96360; 96361; 99284

== ENCOUNTER 2024-01-29 03:30 | Emergency (ER) | payer MEDICARE, OTHER ==
[2024-01-29 03:38] VITALS: RESP 16; TEMP 98.7
--- NOTE | 2024-01-29 03:41 | ED ---
Seizure HPI - General Chief Complaint: Seizure Stated Complaint: Seizure Time Seen by Provider: 01/29/24 03:34 Source: EMS Mode of arrival: EMS Limitations: no limitations - History of Present Illness Initial Comments: Patient is a 23-year-old woman who states she does have seizure disorder. She was at home tonight and had seizure and friends called EMS. The patient states she does also medication but did not recall the name. When I name some she felt that Keppra was the medication she was taking. Further code reveals patient has run out of medicine. States she did not fall when she had seizure. She denies injury. She does state that her back is aching Complaint: seizure Onset/Timin -: hour(s) Description of Episode: loss of consciousness, tonic-clonic movement -: second(s) Witnessed: yes - by bystander Seizure History: known seizure disorder Place: home Possible Precipitating Event: other Associated Symptoms: denies other symptoms Treatments Prior to Arrival: benzodiazepines - Related Data Previous Rx's Medication Instructions Recorded levETIRAcetam [Keppra] 500 mg PO Q12HR #30 tab 01/29/24 Allergies Allergy/AdvReac Type Severity Reaction Status Date / Time No Known Allergies Allergy Verified 12/16/23 11:17 Review of Systems ROS Statement: Those systems with pertinent positive or pertinent negative responses have been documented in the HPI. ROS Other: All systems not noted in ROS Statement are negative. Constitutional: Denies: fever, chills, weakness Respiratory: Denies: cough, dyspnea Cardiovascular: Denies: chest pain, palpitations, edema Gastrointestinal: Denies: abdominal pain, nausea, vomiting, diarrhea Genitourinary: Denies: dysuria, hematuria Musculoskeletal: Reports: back pain Skin: Denies: rash Neurological: Denies: headache, weakness, numbness, confusion Past Medical History Past Medical History: Seizure Disorder History of Any Multi-Drug Resistant Organisms: None Reported Past Surgical History: No Surgical Hx Reported Past Psychological History: No Psychological Hx Reported Smoking Status: Never smoker Past Alcohol Use History: None Reported Past Drug Use History: None Reported General Exam Limitations: no limitations General appearance: alert, in no apparent distress Head exam: Present: atraumatic, normocephalic Eye exam: Present: normal appearance. Absent: scleral icterus, conjunctival injection Neck exam: Present: normal inspection, full ROM. Absent: tenderness Respiratory exam: Present: normal lung sounds bilaterally. Absent: respiratory distress, wheezes, rales, rhonchi, stridor, accessory muscle use Cardiovascular Exam: Present: regular rate, normal rhythm, normal heart sounds. Absent: systolic murmur, diastolic murmur, rubs, gallop GI/Abdominal exam: Present: soft. Absent: distended, tenderness, guarding, rebound, rigid, mass Extremities exam: Present: normal inspection, normal capillary refill. Absent: pedal edema, calf tenderness Back exam: Present: normal inspection, paraspinal tenderness. Absent: CVA tenderness (R), CVA tenderness (L), vertebral tenderness Neurological exam: Present: alert, oriented X3, CN II-XII intact. Absent: motor sensory deficit Skin exam: Present: warm, dry, intact, normal color. Absent: rash Course Vital Signs 01/29/24 01/29/24 01/29/24 03:32 04:27 05:19 Temperature 98.7 F Pulse Rate 59 L 50 L 58 L Respiratory 16 16 16 Rate Blood Pressure 134/86 145/119 154/102 O2 Sat by Pulse 97 97 99 Oximetry 01/29/24 05:43 Temperature Pulse Rate 79 Respiratory 16 Rate Blood Pressure 181/111 O2 Sat by Pulse 99 Oximetry Medical Decision Making - Medical Decision Making Was pt. sent in by a medical professional or institution (DARVIN De Leon, BULB BRANDER, urgent care, hospital, or halfway...) When possible be specific @ -[No] Did you speak to anyone other than the patient for history (EMS, parent, family, police, friend...)? What history was obtained from this source @ -[No] Did you review nursing and triage notes (agree or disagree)? Why? @ -[I reviewed and agree with nursing and triage notes] Were old charts reviewed (outside hosp., previous admission, EMS record, old EKG, old radiological studies, urgent care reports/EKG's, halfway records)? Report findings @ -[No old charts were reviewed] Differential Diagnosis (chest pain, altered mental status, abdominal pain women, abdominal pain men, vaginal bleeding, weakness, fever, dyspnea, syncope, headache, dizziness, GI bleed, back pain, seizure, CVA, palpatations, mental health, musculoskeletal)? @ -[Differential Seizure: Recurrent seizure disorder, febrile seizure, alcohol withdrawal, stimulants, meningitis, encephalitis, intercranial hemorrhage, intracranial tumor, stroke, eclampsia, thyrotoxicosis, hypocalcemia, hyponatremia, hypernatremia, hypomagnesemia, psychogenic, this is not meant to be an all-inclusive list. EKG interpreted by me (3pts min.). @ -[I interpreted as above X-rays interpreted by me (1pt min.). @ -[None done] CT interpreted by me (1pt min.). @ -[None done] U/S interpreted by me (1pt. min.). @ -[None done] What testing was considered but not performed or refused? (CT, X-rays, U/S, labs)? Why? @ -[None] What meds were considered but not given or refused? Why? @ -[None] Did you discuss the management of the patient with other professionals ( professionals i.e. , PA, BULB BRANDER, lab, RT, psych nurse, social work faculty member, inorganic chemistry teacher, teacher, community service officer, test case developer)? Give summary @ -[No] Was smoking cessation discussed for >3mins.? @ -[No] Was critical care preformed (if so, how long)? @ -[No] Were there social determinants of health that impacted care today? How? (Homelessness, low income, unemployed, alcoholism, drug addiction, transportati on, low edu. Level, literacy, decrease access to med. care, fdc, rehab)? @ -[No] Was there de-escalation of care discussed even if they declined (Discuss DNR or withdrawal of care, Hospice)? DNR status @ -[No] What co-morbidities impacted this encounter? (DM, HTN, Smoking, COPD, CAD, Cancer, CVA, ARF, Chemo, Hep., AIDS, mental health diagnosis, sleep apnea, morbid obesity)? @ -[Seizure disorder Was patient admitted / discharged? Hospital course, mention meds given and route, prescriptions, significant lab abnormalities, going to OR and other pertinent info. @ -[Patient is a 23-year-old woman presenting after seizure. The patient does have history of seizures. She is back at baseline and stable to follow-up with her neurologist on a as needed basis Undiagnosed new problem with uncertain prognosis? @ -[No] Drug Therapy requiring intensive monitoring for toxicity (Heparin, Nitro, In sulin, Cardizem)? @ -[No] Were any procedures done? @ -[No] Diagnosis/symptom? @ -[Acute breakthrough seizure Acute, or Chronic, or Acute on Chronic? @ -[Acute Uncomplicated (without systemic symptoms) or Complicated (systemic symptoms)? @ -[Uncomplicated Side effects of treatment? @ -[No] Exacerbation, Progression, or Severe Exacerbation? @ -[No] Poses a threat to life or bodily function? How? (Chest pain, [place], [place], pneumonia, PE, COPD, DKA, ARF, appy, cholecystitis, CVA, Diverticulitis, Homicidal, Suicidal, threat to staff... and all critical care pts) @ -[No] - Lab Data Result diagrams: 01/29/24 03:44 01/29/24 03:44 Lab Results 01/29/24 01/29/24 01/29/24 Range/Units 03:41 03:44 03:44 WBC 8.2 (3.8-10.6) k/uL RBC 3.80 (3.80-5.40) m/uL Hgb 10.1 L (11.4-16.0) gm/dL Hct 31.3 L (34.0-46.0) % MCV 82.5 (80.0-100.0) fL MCH 26.5 (25.0-35.0) pg MCHC 32.1 (31.0-37.0) g/dL RDW 15.6 H (11.5-15.5) % Plt Count 292 (150-450) k/uL MPV 7.5 Neutrophils % 73 % Lymphocytes % 21 % Monocytes % 4 % Eosinophils % 1 % Basophils % 0 % Neutrophils # 6.0 (1.3-7.7) k/uL Lymphocytes # 1.7 (1.0-4.8) k/uL Monocytes # 0.4 (0-1.0) k/uL Eosinophils # 0.1 (0-0.7) k/uL Basophils # 0.0 (0-0.2) k/uL Hypochromasia Slight Sodium (137-145) mmol/L Potassium (3.5-5.1) mmol/L Chloride (98-107) mmol/L Carbon Dioxide (22-30) mmol/L Anion Gap mmol/L BUN (7-17) mg/dL Creatinine (0.52-1.04) mg/dL Est GFR (CKD-EPI)AfAm (>60 ml/min/1.73 sqM) Est GFR (CKD-EPI)NonAf (>60 ml/min/1.73 sqM) Glucose (74-99) mg/dL POC Glucose (mg/dL) 92 (70-110) mg/dL POC Glu Rug Setter Velvet ID Osvaldo, Jo Ann Plasma Lactic Acid Hugh (0.7-2.0) mmol/L Calcium (8.4-10.2) mg/dL Total Bilirubin (0.2-1.3) mg/dL AST (14-36) U/L ALT (4-34) U/L Alkaline Phosphatase (38-126) U/L Total Protein (6.3-8.2) g/dL Albumin (3.5-5.0) g/dL Levetiracetam <1.0 (3.0-60.0) ug/mL 01/29/24 01/29/24 Range/Units 03:44 03:44 WBC (3.8-10.6) k/uL RBC (3.80-5.40) m/uL Hgb (11.4-16.0) gm/dL Hct (34.0-46.0) % MCV (80.0-100.0) fL MCH (25.0-35.0) pg MCHC (31.0-37.0) g/dL RDW (11.5-15.5) % Plt Count (150-450) k/uL MPV Neutrophils % % Lymphocytes % % Monocytes % % Eosinophils % % Basophils % % Neutrophils # (1.3-7.7) k/uL Lymphocytes # (1.0-4.8) k/uL Monocytes # (0-1.0) k/uL Eosinophils # (0-0.7) k/uL Basophils # (0-0.2) k/uL Hypochromasia Sodium 143 (137-145) mmol/L Potassium 2.8 L (3.5-5.1) mmol/L Chloride 104 (98-107) mmol/L Carbon Dioxide 30 (22-30) mmol/L Anion Gap 9 mmol/L BUN 8 (7-17) mg/dL Creatinine 0.55 (0.52-1.04) mg/dL Est GFR (CKD-EPI)AfAm >90 (>60 ml/min/1.73 sqM) Est GFR (CKD-EPI)NonAf >90 (>60 ml/min/1.73 sqM) Glucose 90 (74-99) mg/dL POC Glucose (mg/dL) (70-110) mg/dL POC Glu Rug Setter Velvet ID Plasma Lactic Acid Hugh 1.1 (0.7-2.0) mmol/L Calcium 8.8 (8.4-10.2) mg/dL Total Bilirubin 0.8 (0.2-1.3) mg/dL AST 23 (14-36) U/L ALT 9 (4-34) U/L Alkaline Phosphatase 98 (38-126) U/L Total Protein 7.5 (6.3-8.2) g/dL Albumin 4.1 (3.5-5.0) g/dL Levetiracetam (3.0-60.0) ug/mL - EKG Data -: EKG Interpreted by [facility] EKG shows normal: sinus rhythm, axis (Normal), intervals (AL interval 137 ms, QRS duration 90 ms, both normal. QTc 490 ms, prolonged.), ST-T waves (Normal) Rate: bradycardia (57 bpm) Disposition Clinical Impression: Generalized seizure Disposition: HOME SELF-CARE Instructions (If sedation given, give patient instructions): Seizure/Epilepsy Discharge Instructions & Follow-Up Prescriptions: levETIRAcetam [Keppra] 500 mg PO Q12HR #30 tab Is patient prescribed a controlled substance at d/c from ED?: No Referrals: None,Stated [Primary Care Provider] - 1-2 days Linda Santamaria MD [REFERRING] - 1-2 days
[2024-01-29 03:44] LABS: Glucose,Whole Blood 92 mg/dL (70-110)
[2024-01-29] MEDS ORDERED: levETIRAcetam IV 1,500 MG in SODIUM CHLORIDE 0.9% 250 ML IVPB ONE (03:50)
[2024-01-29] MEDS: KETOROLAC 15 MG/ML 1 ML VIAL IVP STA (04:15)
[2024-01-29] MEDS: SODIUM CHLORIDE 0.9% 1,000 ML IV ONE (04:15)
[2024-01-29] MEDS: levETIRAcetam IV 500 MG/5 ML VIAL IVP ONE (04:16)
[2024-01-29 04:22] LABS: Basophils % (A) 0 %; Eosinophils # (A) 0.1 k/uL (0-0.7); Eosinophils % (A) 1 %; HCT 31.3 % (34.0-46.0); HGB 10.1 gm/dL (11.4-16.0); Hypochromasia Slight; Lymphocytes # (A) 1.7 k/uL (1.0-4.8); Lymphocytes % (A) 21 %; MCH 26.5 pg (25.0-35.0); MCHC 32.1 g/dL (31.0-37.0); MCV 82.5 fL (80.0-100.0); Mean Platelet Volume 7.5; Monocytes # (A) 0.4 k/uL (0-1.0); Monocytes % (A) 4 %; Neutrophils % (A) 73 %; Platelet Count 292 k/uL (150-450); RDW 15.6 % (11.5-15.5); WBC 8.2 k/uL (3.8-10.6)
[2024-01-29 04:34] LABS: ALT 9 U/L (4-34); AST 23 U/L (14-36); African American GFR (CKD) >90 (>60 ml/min/1.73 sqM); Albumin 4.1 g/dL (3.5-5.0); Alkaline Phosphatase 98 U/L (38-126); Anion Gap 9 mmol/L; Blood Urea Nitrogen 8 mg/dL (7-17); Calcium 8.8 mg/dL (8.4-10.2); Carbon Dioxide 30 mmol/L (22-30); Chloride 104 mmol/L (98-107); Glucose 90 mg/dL (74-99); Non-African American GFR(CKD) >90 (>60 ml/min/1.73 sqM); Potassium 2.8 mmol/L (3.5-5.1); Sodium 143 mmol/L (137-145); Total Bilirubin 0.8 mg/dL (0.2-1.3); Total Protein 7.5 g/dL (6.3-8.2)
[2024-01-29] MEDS: POTASSIUM BICARBONATE/CIT AC 20 MEQ TABLET.EFF PO ONE (05:34)
[2024-01-29 05:47] VITALS: BP 181/111; PULSE 79
== END 2024-01-29 06:17 | disposition home or self-care (01) ==
LOC: EC 03:30
DX: G40.409 Other generalized epilepsy and epileptic syndromes, not intractable, without status epilepticus (principal)
CPT/HCPCS: 36415; 93005; 80053; 80177; 83605; 85025; 99284; 96374; 96375; 96361; J1953; J1885

== ENCOUNTER 2024-02-06 16:30 | Emergency (ER) | payer MEDICARE, OTHER ==
[2024-02-06] MEDS ORDERED: KETOROLAC 15 MG/ML 1 ML VIAL ONE (16:50)
[2024-02-06] MEDS ORDERED: SODIUM CHLORIDE 0.9% 1,000 ML BAG ONE (16:50)
[2024-02-06] MEDS ORDERED: ACETAMINOPHEN TAB 325 MG TAB ONE (16:50)
[2024-02-06] MEDS ORDERED: SODIUM CHLORIDE 0.9% 500 ML BAG ONE (16:50)
== END 2024-02-06 21:53 | disposition home or self-care (01) ==
LOC: EC 16:30
DX: G40.909 Epilepsy, unspecified, not intractable, without status epilepticus (principal)
CPT/HCPCS: 93005; 96361; 96374; 99284